=== PATIENT | female | born 1995 | race Caucasian/White ===

== ENCOUNTER → 2019-11-17 | Outpatient (CLI) | payer BC ==
[2019-11-17 10:08] LABS: Basophils % (A) 0 %; Eosinophils # (A) 0.1 k/uL (0-0.7); Eosinophils % (A) 1 %; HCT 38.3 % (34.0-46.0); HGB 12.5 gm/dL (11.4-16.0); Lymphocytes # (A) 2.2 k/uL (1.0-4.8); Lymphocytes % (A) 26 %; MCH 28.5 pg (25.0-35.0); MCHC 32.6 g/dL (31.0-37.0); MCV 87.2 fL (80.0-100.0); Mean Platelet Volume 7.3; Monocytes # (A) 0.4 k/uL (0-1.0); Monocytes % (A) 5 %; Neutrophils # (A) 5.4 k/uL (1.3-7.7); Neutrophils % (A) 65 %; Platelet Count 310 k/uL (150-450); RBC 4.39 m/uL (3.80-5.40); RDW 12.1 % (11.5-15.5); WBC 8.3 k/uL (3.8-10.6)
[2019-11-17 18:07] LABS: African American GFR (CKD) 138.6 (60.0-200.0); Albumin 4.6 g/dL (3.80-4.90); Albumin/Globulin Ratio 2.19 (1.60-3.17); Anion Gap 7.6 mmol/L (4.00-12.00); BUN/Creat Ratio 12.86 Ratio (12.00-20.00); Calcium 9.2 mg/dL (8.7-10.3); Carbon Dioxide 24.4 mmol/L (21.6-31.8); Globulin 2.1 g/dL (1.6-3.3); Non-African American GFR(CKD) 119.6 (60.0-200.0); Total Bilirubin 0.6 mg/dL (0.2-1.2); Total Protein 6.7 g/dL (6.2-8.2)
[2019-11-17 18:14] LABS: T4, Free (Free Thyroxine) 1.2 ng/dL (0.80-1.80)
== END | disposition home or self-care (01) ==
LOC: LABWHC1 09:46
PROVIDERS: ATTEND Nurse Practitioner Family
DX: Z33.1 Pregnant state, incidental (principal)
CPT/HCPCS: 36415; 80053; 84144; 84439; 84443; 84702; 85025; 86900; 86901

== ENCOUNTER → 2019-12-01 | Outpatient (CLI) | payer BC ==
--- NOTE | 2019-12-01 09:07 | US ---
EXAMINATION TYPE: Transabdominal DATE OF EXAM: 12/01/2019 8:19 AM COMPARISON: NONE CLINICAL HISTORY: Z33.1 state, incidental. Positive beta-hCG test. EXAM PERFORMED: Transvaginal (TV) and Transabdominal (TA) EXAM MEASUREMENTS: GESTATIONAL AGE / DATING Physician Established: Not yet established Dates by LMP: (7 weeks/6 days) EDC: 07/13/2020 Dates by First Scan: No previous this is first scan Dates by Current Scan for: (7 weeks/1 days) EDC: 07/18/2020 MATERNAL ANATOMY Uterus: 7.4 x 4.4 x 4.9 cm Right Ovary: 3.1 x 1.8 x 2.2 cm Left Ovary: 3.9 x 2.9 x 2.4 cm Post CDS / Adnexa: wnl Presence of free fluid: No Presence of corpus luteal cyst: Yes, left ovary measuring 2.3 x 1.4 x 1.7 cm Presence of subchorionic bleed: No GESTATION / SURVEY CRL: 1.0 cm (7 weeks/1 days) Yolk Sac (normal less than 6mm): 4 mm Heart Rate: 150 bpm Rhythm: Normal IUP: Viable IUP Date of LMP: 10/07/2019 Beta HcG (if available): Not available at this time Viable IUP with an SVETLANA of 07/18/2020 Single live intrauterine gestation is seen as gestational sac, yolk sac, and pole are present. No free fluid in pelvic cul-de-sac. Both ovaries are seen. Within the left ovary there is 2.3 cm thin-walled cyst could reflect corpus radha teal cyst. IMPRESSION: Single live intrauterine gestation is confirmed, mean crown-rump length is 1.0 cm corresp onding to a 7 week 1 day old fetus.
== END | disposition home or self-care (01) ==
LOC: RADUSWWP 07:38
PROVIDERS: ATTEND Family Medicine
DX: Z33.1 Pregnant state, incidental (principal); Z3A.01 Less than 8 weeks gestation of pregnancy
CPT/HCPCS: 76801; 76817

== ENCOUNTER 2020-07-10 06:06 | Inpatient (IN) | payer OTHER, BC ==
[2020-07-10] MEDS ORDERED: CARBOPROST TROMETHAMINE 250 MCG/ML 1 ML AMP IM PRN (06:20)
[2020-07-10] MEDS ORDERED: METHYLERGONOVINE 0.2 MG/ML 1 ML AMP IM PRN (06:20)
[2020-07-10] MEDS ORDERED: OXYTOCIN 10 UNIT/ML 1 ML VIAL IM PRN (06:20)
[2020-07-10] MEDS ORDERED: LIDOCAINE 0.5% (PF) 5 MG/ML (50 ML SDV) SQ PRN (06:20)
[2020-07-10] MEDS ORDERED: TERBUTALINE 1 MG/ML VIAL SQ PRN (06:20)
[2020-07-10] MEDS ORDERED: OXYTOCIN 30 UNITS/500 ML NS 30 UNIT in SALINE 1 500ML.BAG IV SCH (06:30)
[2020-07-10] MEDS: LACTATED RINGERS 1,000 ML IV SCH ×4 (06:43→20:45)
[2020-07-10] MEDS ORDERED: AMPICILLIN 2,000 MG in SODIUM CHLORIDE 0.9% 100 ML IVPB ONE (07:00)
[2020-07-10 07:07] LABS: Basophils % (A) 0 %; Eosinophils # (A) 0.1 k/uL (0-0.7); Eosinophils % (A) 1 %; HCT 35.7 % (34.0-46.0); HGB 11.7 gm/dL (11.4-16.0); Lymphocytes # (A) 2.9 k/uL (1.0-4.8); Lymphocytes % (A) 23 %; MCHC 32.8 g/dL (31.0-37.0); MCV 85.2 fL (80.0-100.0); Mean Platelet Volume 7.9; Monocytes # (A) 0.6 k/uL (0-1.0); Monocytes % (A) 5 %; Neutrophils # (A) 8.5 k/uL (1.3-7.7); Neutrophils % (A) 69 %; Platelet Count 309 k/uL (150-450); RBC 4.19 m/uL (3.80-5.40); RDW 13.8 % (11.5-15.5); WBC 12.4 k/uL (3.8-10.6)
[2020-07-10] MEDS: AMPICILLIN 1,000 MG in SODIUM CHLORIDE 0.9% 50 ML IVPB SCH ×2 (11:40→15:19)
[2020-07-10] MEDS ORDERED: SODIUM CHLORIDE 0.9% 100 ML BAG ONE (11:45)
[2020-07-10] MEDS ORDERED: fentaNYL (PF) 50 MCG/ML 5 ML AMP ONE (11:45)
[2020-07-10] MEDS ORDERED: ROPIVACAINE 5MG/ML 20ML VIAL ONE (11:45)
[2020-07-10] MEDS ORDERED: CITRIC ACID-SODIUM CITRATE 15 ML CUP PO ONE (16:13)
[2020-07-10] MEDS ORDERED: ceFAZolin 3 GM in SODIUM CHLORIDE 0.9% 100 ML IVPB ONE (16:13)
[2020-07-10] MEDS ORDERED: MORPHINE SULFATE (PF) 0.3 MG/0.3 ML SYR ONE (16:50)
[2020-07-10] MEDS ORDERED: LIDOCAINE 2% INJ 20 MG/ML (20 ML MDV) ONE (16:50)
[2020-07-10] MEDS ORDERED: PHENYLEPHRINE-0.9% NACL SYG 1 MG/10 ML SYRINGE ONE (16:50)
[2020-07-10] MEDS ORDERED: ONDANSETRON 4 MG/2 ML VIAL ONE (16:50)
[2020-07-10] MEDS ORDERED: OXYTOCIN 10 UNIT/ML 1 ML VIAL ONE (16:50)
[2020-07-10] MEDS ORDERED: MORPHINE SULFATE 2 MG/ML SYRINGE IVP PRN (17:20)
[2020-07-10] MEDS ORDERED: NALOXONE 0.4 MG/ML 1 ML VIAL IV PRN ×2 (17:20→17:45)
[2020-07-10] MEDS ORDERED: diphenhydrAMINE 50 MG/ML 1 ML VIAL IVP PRN ×3 (17:20→17:45)
[2020-07-10] MEDS ORDERED: ONDANSETRON 4 MG/2 ML VIAL IVP PRN ×2 (17:20→17:45)
--- NOTE | 2020-07-10 17:37 | P.HPOB ---
History of Present Illness H&P Date: 07/10/20 Chief Complaint: IUP @ 39 4/7 weeks, suspected LGA This is a 24-year-old 1 para 0 at 39 and 4/sevenths weeks that presents to labor and delivery for induction of labor. Patient has been receiving routine care since the first trimester. Patient is asked have a history of hypertension which has been well controlled, she has actually discontinued her labetalol with normal blood pressures in the third trimester. Patient has a history of asthma and depression in addition. Patient had been measuring large for gestational dates estimated weight 89 on 06/26. Patient was requesting induction of labor secondary to suspected LGA at that time. On bloodwork patient a blood type of O+, rubella status immune, RPR nonreactive, B surface antigen negative, HIV negative, a pre-[place] labs and 24 urine throughout the have been normal she did pass her one-hour Glucola: With a result of 128. Group beta strep culture was noted to be posi tive on 06/21. Review of Systems Constitutional: Denies fatigue, Denies fever Ears, nose, mouth and throat: Denies headache Cardiovascular: Reports leg edema Respiratory: Denies dyspnea Gastrointestinal: Reports vomiting, Denies constipation, Denies nausea Genitourinary: Reports Past Medical History Past Medical History: Asthma Additional Past Medical History / Comment(s): PCOS History of Any Multi-Drug Resistant Organisms: None Reported Past Surgical History: No Surgical Hx Reported Past Anesthesia/Blood Transfusion Reactions: No Reported Reaction Past Psychological History: Anxiety, Depression Smoking Status: Never smoker Past Alcohol Use History: None Reported Past Drug Use History: None Reported - Past Family History Mother Family Medical History: Hypertension Father Family Medical History: Hypertension Sister(s) Family Medical History: Thyroid Disorder Additional Family Medical History / Comment(s): Hypothyroid Medications and Allergies Home Medications Medication Instructions Recorded Confirmed Type Albuterol Inhaler [Ventolin Hfa 1 puff INHALATION DAILY PRN 07/10/20 07/10/20 History Inhaler] Sertraline [Zoloft] 50 mg PO DAILY 07/10/20 07/10/20 History metFORMIN HCL 500 mg PO DAILY 07/10/20 07/10/20 History Allergies Allergy/AdvReac Type Severity Reaction Status Date / Time No Known Allergies Allergy Verified 07/10/20 06:17 Exam Osteopathic Statement: *. No significant issues noted on an osteopathic structural exam other than those noted in the History and Physical/Consult. Vital Signs Temp Pulse Resp BP 07/10/20 06:45 97.5 F L 144 H 16 141/83 Intake and Output 07/09/20 07/10/20 07/10/20 22:59 06:59 14:59 Other: Weight 126.552 kg Targeted physical exam is performed and state in general this a well-nourished well-developed female in no acute distress, breathing is noted to be nonlabored, heart has regular rate and rhythm, abdomen is gravid and obese. heart tones returned be category 1, she is kulwinder every 4 minutes. On cervical exam she is 2/80/-2 station, amniotomy is performed and clear fluid was obtained. Results Result Diagrams: 07/10/20 06:40 Abnormal Lab Results - Last 24 Hours (Table) 07/10/20 Range/Units 06:40 WBC 12.4 H (3.8-10.6) k/uL Neutrophils # 8.5 H (1.3-7.7) k/uL Assessment and Plan (1) Term Current Visit: Yes Status: Acute Code(s): Z34.90 - ENCNTR FOR SUPRVSN OF NORMAL , UNSP, UNSP TRIMESTER SNOMED Code(s): 58638769 (2) Positive GBS test Current Visit: Yes Status: Acute Code(s): B95.1 - STREPTOCOCCUS, GROUP B, CAUSING DISEASES CLASSD ELSR SNOMED Code(s): 883291644 (3) Chronic hypertension Current Visit: Yes Status: Acute Code(s): I10 - ESSENTIAL (PRIMARY) HYPER TENSION SNOMED Code(s): 45561527 Plan: Patient is admitted to labor and delivery for induction of labor. Pitocin induction of labor is begun. Discussion with patient regarding options for pain control patient desires epidural once in labor. We'll monitor patient closely, all questions are answered patient states understanding of plan.
[2020-07-10] MEDS ORDERED: diphenhydrAMINE 50 MG CAP PO PRN (17:45)
[2020-07-10] MEDS ORDERED: SIMETHICONE 80 MG CHEWABLE PO PRN (17:45)
[2020-07-10] MEDS ORDERED: OXYTOCIN 20 UNITS/1000 ML NS 1,000 ML IV SCH (17:45)
[2020-07-10] MEDS ORDERED: diphenhydrAMINE 25 MG CAP PO PRN (17:45)
[2020-07-10] MEDS ORDERED: ZOLPIDEM 5 MG TAB PO PRN (17:45)
[2020-07-10] MEDS ORDERED: HYDROcodone/APAP 5-325MG 1 EACH TAB PO PRN (17:45)
--- NOTE | 2020-07-10 17:45 | P.OP ---
Date of Procedure: 07/10/20 Preoperative Diagnosis: IUP @ 39 4/7 weeks, non reassuring FHTs, suspected LGA Postoperative Diagnosis: same Procedure(s) Performed: Primary LTCS Anesthesia: epidural Surgeon: Laura Jones Rubber Washer #1: Betsy Gonzales Estimated Blood Loss (ml): 600 IV fluids (ml): 1,000 Urine output (ml): 100 Pathology: other (placenta) Condition: stable Disposition: observation Indications for Procedure: This is a 24yo at 39 4/7 weeks that presented for IOL, she had an US done approx., 2 weeks ago revealing EFW > 90%ile. she was admitted and pitocin induction of labor was begun. she soon requested epidural and this was placed by the anesthesia department. Patient was noted to be comfortable with epidural, she began having late decels and pitocin was turned off. FHTs were then noted to be reactive, discussion with patient regarding heart tones and the need for contractions. she elects primary c section. Operative Findings: Normal uterus tubes and ovaries were appreciated, viable female infant delivered at 1708, weight of 8 lbs. 9 oz. and Apgars of 7 and 9 at one and 5 minutes respectfully. Description of Procedure: Patient was taken back to the operating suite where epidural anesthesia was found be adequate by the anesthesia . She was then prepped and draped in normal sterile fashion a Watson catheter had been placed prior to the beginning of the procedure. A Pfannenstiel skin incision was made with the scalpel and carried through the underlying layer of fascia. The fascia was then incised in the midline and the incision was extended laterally. The superior aspect of the fascial incision was then grasped anatoliy clamps, elevated and the underlying rectus muscle was dissected off sharply. Attention was then turned the inferior aspect of the fascial incision which was grasped [place] clamps, elevated and underlying rectus muscle was dissected off sharply once again. The rectus muscles were in the midline the peritoneum was identified and entered. This incision was then extended superiorly and inferiorly with good visualization the bladder. The bladder blade was then inserted into the pelvis. A bladder flap was then created using sharp and blunt blunt dissection. The bladder blade was then reinserted. Hysterotomy incision was then made with the scalpel, amniotomy was performed and clear fluid was obtained. The was then noted to be in the occiput transverse presentation and delivered in the usual fashion. The umbilical cord was doubly clamped and cut and handed off to awaiting RN. Cord blood was then taken, the placenta was then delivered manually intact with a three-vessel cord being noted. The uterus was then delivered from the abdomen. The uterus was cleared of all clots and debris. The uterine incision was closed 0 Vicryl in a running locked fashion from one lateral edge the other. A second layer of suture was then used as an imbricating layer. The pelvis was then irrigated copiously. The uterus was then returned to the abdomen. Hysterotomy incision was noted to be hemostatic. The gutters were cleared of all clots and debris. The peritoneum was then loosely approximated. The fascial incision was then closed with 0 Vicryl in a running fashion from one lateral edge the midline and the other lateral edge the midline. The subcutaneous tissue was then irrigated and hemostasis was appreciated. The subcutaneous tissue was closed with 3-0 Vicryl in a running fashion. The skin was then closed with 4-0 Vicryl in a subcuticular fashion. Steri-Strips and sterile dressings are applied. Patient and tolerated delivery well. All counts were noted be correct 2.
[2020-07-10] MEDS ORDERED: ACETAMINOPHEN IV (For NPO) 1,000 MG in EMPTY BAG 1 BAG IVPB ONE (18:30)
[2020-07-10] MEDS ORDERED: IBUPROFEN IV 800 MG in SODIUM CHLORIDE 0.9% 250 ML IV ONE (19:00)
[2020-07-10] MEDS: SERTRALINE 50 MG TAB PO SCH (20:44)
[2020-07-10] MEDS: SENNOSIDES-DOCUSATE SODIUM 1 EACH TAB PO SCH (20:46)
[2020-07-11] MEDS: LACTATED RINGERS 1,000 ML IV SCH ×3 (03:55→21:11)
[2020-07-11 06:38] LABS: Basophils % (A) 0 %; Eosinophils # (A) 0.1 k/uL (0-0.7); Eosinophils % (A) 0 %; HCT 31.4 % (34.0-46.0); HGB 10.3 gm/dL (11.4-16.0); Lymphocytes # (A) 2.7 k/uL (1.0-4.8); Lymphocytes % (A) 16 %; MCH 28.4 pg (25.0-35.0); MCHC 32.9 g/dL (31.0-37.0); MCV 86.3 fL (80.0-100.0); Mean Platelet Volume 7.7; Monocytes # (A) 1.1 k/uL (0-1.0); Monocytes % (A) 6 %; Neutrophils # (A) 13.2 k/uL (1.3-7.7); Neutrophils % (A) 77 %; Platelet Count 263 k/uL (150-450); RBC 3.64 m/uL (3.80-5.40); RDW 13.6 % (11.5-15.5); WBC 17.3 k/uL (3.8-10.6)
--- NOTE | 2020-07-11 07:17 | P.PN ---
Progress Note - Text Date: 07/11/2020 Time: 0700 The patient is status post section Vital signs stable VAS: 0-10 Patient has no complaints of pain. The patient incurred some minimal itching yesterday, this itching is now subsiding. Pain meds to be managed by service.
[2020-07-11] MEDS: SERTRALINE 50 MG TAB PO SCH ×2 (08:14→08:50)
[2020-07-11] MEDS: SENNOSIDES-DOCUSATE SODIUM 1 EACH TAB PO SCH ×2 (08:14→21:11)
[2020-07-11] MEDS: IBUPROFEN 600 MG TAB PO PRN ×3 (08:15→23:32)
--- NOTE | 2020-07-11 08:26 | P.PNOBGPC ---
Subjective - Subjective Principal diagnosis: Postop day 1 status post primary Interval history: Patient did well overnight. She is ambulating and voiding without difficulty. She states her pain is well-controlled. She is breast-feeding without difficulty. Her lochia is minimal. She is tolerating clear liquids without nausea or vomiting. Patient reports: Reports appetite normal, Reports voiding normally, Reports pain well controlled, Reports ambulating normally [place]: doing well, nursing well Objective - Vital Signs Latest vital signs: Vital Signs Temp Pulse Resp BP Pulse Ox 07/11/20 06:00 16 07/11/20 04:00 98.1 F 92 16 105/65 99 07/11/20 02:00 16 98 07/11/20 00:00 98.1 F 90 16 121/71 98 07/10/20 22:00 16 100 07/10/20 20:20 17 07/10/20 19:36 98.7 F 92 19 110/61 97 07/10/20 19:06 99 17 105/55 97 07/10/20 18:36 102 H 16 127/63 99 07/10/20 18:21 104 H 16 125/63 94 L 07/10/20 18:06 16 127/82 95 07/10/20 17:51 100 16 124/68 97 07/10/20 17:36 97.9 F 106 H 16 138/66 99 Intake and Output 07/10/20 07/11/20 07/11/20 22:59 06:59 14:59 Output Total 600 1200 Balance -600 -1200 Output: Urine 600 1200 Uretheral (Watson) 300 - Exam Extremities: Present: normal, edema Abdomen: Present: normal appearance, soft Incision: Present: normal, dry, intact - Labs Labs: Abnormal Lab Results - Last 24 Hours (Table) 07/11/20 Range/Units 05:58 WBC 17.3 H (3.8-10.6) k/uL RBC 3.64 L (3.80-5.40) m/uL Hgb 10.3 L (11.4-16.0) gm/dL Hct 31.4 L (34.0-46.0) % Neutrophils # 13.2 H (1.3-7.7) k/uL Monocytes # 1.1 H (0-1.0) k/uL Assessment and Plan (1) Term Current Visit: Yes Status: Acute Code(s): Z34.90 - ENCNTR FOR SUPRVSN OF NORMAL , UNSP, UNSP TRIMESTER SNOMED Code(s): 88636308 (2) Positive GBS test Current Visit: Yes Status: Acute Code(s): B95.1 - STREPTOCOCCUS, GROUP B, CAUSING DISEASES CLASSD ELSWHR SNOMED Code(s): 918619024 (3) Chronic hypertension Current Visit: Yes Status: Acute Code(s): I10 - ESSENTIAL (PRIMARY) HYPERTENSION SNOMED Code(s): 91013640 (4) S/P section Narrative/Plan: For nonreassuring reassuring status, heart tones are noted to have late decelerations with Pitocin augmentation of labor. Pitocin was turned off heart tones returned to reassuring status. Current Visit: Yes Status: Acute Code(s): Z98.891 - HISTORY OF UTERINE SCAR FROM PREVIOUS SURGERY SNOMED Code(s): 326868938 Plan: This 24-year-old 1 now para 1 status post primary for nonreassuring heart tones is doing well. Patient is encouraged to increase ambulation today. We will plan to continue routine postoperative care and anticipate discharge home tomorrow.
[2020-07-11] MEDS: ACETAMINOPHEN TAB 325 MG TAB PO PRN (18:36)
[2020-07-12] MEDS: ACETAMINOPHEN TAB 325 MG TAB PO PRN (03:02)
[2020-07-12] MEDS: IBUPROFEN 600 MG TAB PO PRN (05:39)
[2020-07-12 08:46] VITALS: BP 135/72; PULSE 103; RESP 16; TEMP 98.3
[2020-07-12] MEDS: SENNOSIDES-DOCUSATE SODIUM 1 EACH TAB PO SCH (08:49)
--- NOTE | 2020-07-12 09:04 | P.DS ---
Providers Date of admission: 07/10/20 06:06 Expected date of discharge: 07/12/20 Attending physician: Laura Jones Primary care physician: Quan Saini - Discharge Diagnosis(es) (1) Term Current Visit: Yes Status: Acute (2) Positive GBS test Current Visit: Yes Status: Acute (3) Chronic hypertension Current Visit: Yes Status: Acute (4) S/P section Current Visit: Yes Status: Acute Hospital Course: This is a 24-year-old 1 now para 1 presented to labor and delivery at 39-4/7 weeks for induction of labor. Patient had been receiving routine care and suspected LGA was noted. Patient desired induction of labor. Patient has a history of chronic hypertension which was controlled with labetalol, she subsequently took herself off her medication approximate 1 month prior to delivery. Patient was admitted to labor and delivery and Pitocin induction of labor was begun. Patient subsequently underwent amniotomy and clear fluid was obtained. Patient's and became uncomfortable and requested epidural placement. Epidural was placed without difficulty by the anesthesia department. Patient progressed through labor and nonreassuring heart tones were noted patient was having late decelerations with contractions. Pitocin was turned off heart tones returned category 1. Given the repetitive nature of the lates with Pitocin discussion was had with the patient regarding primary secondary to nonreassuring heart tones with Pitocin. Patient agreed and wished to proceed. Patient was taken for primary which was completed without difficulty.. For further decelerations on the please see the operative report. Patient delivered a viable female at 1708, weight of 8 lbs. 9 oz. with Apgars of 7 and 9 at one and 5 minutes respectively. Patient's course has been uneventful. On this day #2 she is ambulating and voiding without difficulty. She states her pain is well-controlled. She denies concerns and does wish discharge home. Patient Condition at Discharge: Good Plan - Discharge Summary New Discharge Prescriptions: No Action Sertraline [Zoloft] 50 mg PO DAILY metFORMIN HCL 500 mg PO DAILY Albuterol Inhaler [Ventolin Hfa Inhaler] 1 puff INHALATION DAILY PRN PRN Reason: Dyspnea Discharge Medication List Albuterol Inhaler [Ventolin Hfa Inhaler] 1 puff INHALATION DAILY PRN 07/10/20 [History] Sertraline [Zoloft] 50 mg PO DAILY 07/10/20 [History] metFORMIN HCL 500 mg PO DAILY 07/10/20 [History] Follow up Appointment(s)/Referral(s): Laura Jones DO [Doctor of Osteopathic Medicine] - 2 Weeks Patient Instructions/Handouts: (DC), (GEN) Discharge Disposition: HOME SELF-CARE
[2020-07-12] MEDS: SERTRALINE 50 MG TAB PO SCH (11:38)
== END 2020-07-12 11:42 | disposition home or self-care (01) | DRG 788 ==
LOC: 4FBP 06:06
PROVIDERS: ADMIT Obstetrics & Gynecology Obstetrics; ATTEND Obstetrics & Gynecology Obstetrics
PROC: 3E033VJ Introduction of Other Hormone into Peripheral Vein, Percutaneous Approach (ICD-10-PCS; principal; 2020-07-10 16:30)
PROC: 10D00Z1 Extraction of Products of Conception, Low, Open Approach (ICD-10-PCS; principal; 2020-07-10 16:30)
DX: O16.4 Unspecified maternal hypertension, complicating childbirth (principal); O76 Abnormality in fetal heart rate and rhythm complicating labor and delivery; O99.344 Other mental disorders complicating childbirth; F32.9 Major depressive disorder, single episode, unspecified; F41.9 Anxiety disorder, unspecified; O99.824 Streptococcus B carrier state complicating childbirth; O99.284 Endocrine, nutritional and metabolic diseases complicating childbirth; E28.2 Polycystic ovarian syndrome; Z37.0 Single live birth; Z3A.39 39 weeks gestation of pregnancy; Z79.84 Long term (current) use of oral hypoglycemic drugs; Z79.899 Other long term (current) drug therapy; Z87.09 Personal history of other diseases of the respiratory system; Z82.49 Family history of ischemic heart disease and other diseases of the circulatory system; Z83.49 Family history of other endocrine, nutritional and metabolic diseases
CPT/HCPCS: 85025; 86850; 86900; 86901

== ENCOUNTER 2022-07-20 19:24 | Inpatient (IN) | payer BC, MEDICAID, OTHER ==
--- NOTE | 2022-07-20 22:47 | XR ---
EXAMINATION TYPE: XR KUB DATE OF EXAM: 07/20/2022 COMPARISON: NONE HISTORY: Vomiting TECHNIQUE: 2 views upright FINDINGS: There is no sign of intestinal obstruction or pneumoperitoneum. Fecal pattern is normal. No evidence of a mass. There are no pathologic calcifications over the kidneys. IMPRESSION: Nonacute abdomen.
[2022-07-20 23:49] LABS: Amorphous Sediment,Urine Occasional /hpf; Appearance,Urine Turbid (Clear); Bacteria,Urine Few /hpf; Bilirubin,Urine 2+ (Negative); Blood,Urine Negative (Negative); Color,Urine Light Brown; Glucose,Urine (UA) Negative (Negative); Ketones,Urine 2+ (Negative); Leukocyte Esterase,Urine Negative (Negative); Nitrite,Urine Negative (Negative); PH, Urine 5.5 (5.0-8.0); Protein,Urine Trace (Negative); RBC,Urine 3 /hpf (0-5); Specific Gravity,Urine 1.023 (1.001-1.035); Squamous Epithelial Cell,Urine 3 /hpf (0-4); WBC,Urine 2 /hpf (0-5)
--- NOTE | 2022-07-21 00:52 | ED ---
Abdominal Pain HPI - General Chief Complaint: Abdominal Pain Stated Complaint: Gallbladder pain, Urgent care sent Time Seen by Provider: 07/21/22 00:48 Source: patient, family, RN notes reviewed Mode of arrival: ambulatory Limitations: no limitations - History of Present Illness Initial Comments: This is a pleasant 26-year-old female who presents emergency department with recurrent right upper quadrant and upper abdominal pain. Patient states that th e pain is sharp, seems to be exacerbated by eating or palpation. She did have some radiation to the back area which she states is actually going on for several months. No chest pain or shortness of breath. No fever. Some vomiting without hematemesis or coffee-ground emesis. She states that the urgent care were is worried that she might be jaundiced. Denies chance of . Patient was also seen at urgent care this morning and was sent here for evaluation. No headache, no fever or chills, no changes in vision or hearing, no sore throat or difficulty with speech, no neck pain, no chest pain or shortness of breath, no changes in urination or bowel movements, no numbness or tingling, no extremity pain, no skin rashes or lesions. Past medical, surgical, social, and family history reviewed. - Related Data Home Medications Medication Instructions Recorded Confirmed Albuterol Inhaler [Ventolin Hfa 1 puff INHALATION DAILY PRN 07/10/20 07/10/20 Inhaler] Sertraline [Zoloft] 50 mg PO DAILY 07/10/20 07/10/20 metFORMIN HCL 500 mg PO DAILY 07/10/20 07/10/20 Allergies Allergy/AdvReac Type Severity Reaction Status Date / Time No Known Allergies Allergy Verified 07/20/22 20:41 Review of Systems ROS Statement: Those systems with pertinent positive or pertinent negative responses have been documented in the HPI. ROS Other: All systems not noted in ROS Statement are negative. Past Medical History Past Medical History: Asthma Additional Past Medical History / Comment(s): PCOS History of Any Multi-Drug Resistant Organisms: None Reported Past Surgical History: No Surgical Hx Reported Past Anesthesia/Blood Transfusion Reactions: No Reported Reaction Past Psychological History: Anxiety, Depression Smoking Status: Never smoker Past Alcohol Use History: Occasional Past Drug Use History: None Reported - Past Family History Mother Family Medical History: Hypertension Father Family Medical History: Hypertension Sister(s) Family Medical History: Thyroid Disorder Additional Family Medical History / Comment(s): Hypothyroid General Exam - General Exam Comments Initial Comments: Patient in no distress at the time I'm seeing her. Patient actually drinking a soda when I enter the room. Limitations: no limitations General appearance: alert, obese Head exam: Present: atraumatic, normocephalic, normal inspection Eye exam: Present: normal appearance, PERRL, EOMI, scleral icterus (Mild). Absent: conjunctival injection, periorbital swelling ENT exam: Present: normal exam, mucous membranes moist Neck exam: Present: normal inspection, full ROM. Absent: tenderness, meningismus, lymphadenopathy Respiratory exam: Present: normal lung sounds bilaterally. Absent: respiratory distress, wheezes, rales, rhonchi, stridor, chest wall tenderness, accessory muscle use Cardiovascular Exam: Present: regular rate, normal rhythm, normal heart sounds. Absent: systolic murmur, diastolic murmur, rubs, gallop, clicks GI/Abdominal exam: Present: soft, tenderness (Right upper quadrant), normal bowel sounds. Absent: distended, guarding, rebound, rigid Extremities exam: Present: normal inspection, full ROM, normal capillary refill. Absent: tenderness, pedal edema, joint swelling, calf tenderness Back exam: Present: normal inspection Neurological exam: Present: alert, oriented X3, CN II-XII intact Psychiatric exam: Present: normal affect, normal mood Skin exam: Present: warm, dry, intact, normal color. Absent: rash Course Vital Signs 07/20/22 20:36 Temperature 98.5 F Pulse Rate 114 H Respiratory 22 Rate Blood Pressure 120/88 O2 Sat by Pulse 100 Oximetry - Reevaluation(s) Reevaluation #1: 07/21/22 02:46 Patient reevaluated, has very mild right upper quadrant pain and tenderness. However patient's hepatic enzymes reveal an ALT of 688, alkaline phosphatase of 191, AST of 288, total bilirubin 4.8. Neutrophil count is 8300. White blood cell count 10,400. Patient's gallbladder ultrasounds essentially nondiagnostic and did not show any definitive acute changes. I'm going to add on a computed tomography scan given the laboratory findings. She'll need to be admitted with gastroenterology consultation. Reevaluation #2: 07/21/22 02:46 Zosyn 3.375 g IV piggyback ordered Medical Decision Making - Medical Decision Making Patient symptomology most consistent with biliary colic or gallbladder disease. Patient looks well. Does not appear to be ill or toxic. I suspect this is not infectious etiology. However cholecystitis and ascending cholangitis still in the differential. No consistent cardiopulmonary disease. There is no lower abdominal pain. Unlikely to be other intra-abdominal infectious etiology or inflammatory etiology. Pancreatitis possible but less likely. Patient will be admitted for further evaluation for obstructive jaundice, elevated bilirubin, elevated hepatic enzymes, gallbladder ultrasound was essentially nondiagnostic aside from gallbladder polyps. Computed tomography scan is ordered. Call placed to the patient's admitting physician. The case was discussed in detail with ED attending physician. Presentation, findings, treatment plan discussed in detail. Layout Designer Dr. Langford - Lab Data Result diagrams: 07/21/22 02:12 07/21/22 02:12 Lab Results 07/20/22 07/20/22 07/21/22 Range/Units 23:31 23:31 02:12 WBC 10.4 (3.8-10.6) k/uL RBC 4.65 (3.80-5.40) m/uL Hgb 13.7 (11.4-16.0) gm/dL Hct 41.5 (34.0-46.0) % MCV 89.2 (80.0-100.0) fL MCH 29.5 (25.0-35.0) pg MCHC 33.1 (31.0-37.0) g/dL RDW 12.8 (11.5-15.5) % Plt Count 341 (150-450) k/uL MPV 7.0 Neutrophils % 79 % Lymphocytes % 14 % Monocytes % 4 % Eosinophils % 1 % Basophils % 0 % Neutrophils # 8.3 H (1.3-7.7) k/uL Lymphocytes # 1.5 (1.0-4.8) k/uL Monocytes # 0.4 (0-1.0) k/uL Eosinophils # 0.1 (0-0.7) k/uL Basophils # 0.0 (0-0.2) k/uL Sodium (137-145) mmol/L Potassium (3.5-5.1) mmol/L Chloride (98-107) mmol/L Carbon Dioxide (22-30) mmol/L Anion Gap mmol/L BUN (7-17) mg/dL Creatinine (0.52-1.04) mg/dL Est GFR (CKD-EPI)AfAm (>60 ml/min/1.73 sqM) Est GFR (CKD-EPI)NonAf (>60 ml/min/1.73 sqM) Glucose (74-99) mg/dL Calcium (8.4-10.2) mg/dL Total Bilirubin (0.2-1.3) mg/dL AST (14-36) U/L ALT (4-34) U/L Alkaline Phosphatase (38-126) U/L Total Protein (6.3-8.2) g/dL Albumin (3.5-5.0) g/dL Amylase (30-110) U/L Lipase (23-300) U/L Urine Color Light Brown Urine Appearance Turbid H (Clear) Urine pH 5.5 (5.0-8.0) Ur Specific [place] 1.023 (1.001-1.035) Urine Protein Trace H (Negative) Urine Glucose (UA) Negative (Negative) Urine Ketones 2+ H (Negative) Urine Blood Negative (Negative) Urine Nitrite Negative (Negative) Urine Bilirubin 2+ H (Negative) Urine Urobilinogen 2.0 (<2.0) mg/dL Ur Leukocyte Esterase Negative (Negative) Urine RBC 3 (0-5) /hpf Urine WBC 2 (0-5) /hpf Ur Squamous Epith Cells 3 (0-4) /hpf Amorphous Sediment Occasional H (None) /hpf Urine Bacteria Few H (None) /hpf Urine HCG, Qual Not Detected (Not Detectd) 07/21/22 Range/Units 02:12 WBC (3.8-10.6) k/uL RBC (3.80-5.40) m/uL Hgb (11.4-16.0) gm/dL Hct (34.0-46.0) % MCV (80.0-100.0) fL MCH (25.0-35.0) pg MCHC (31.0-37.0) g/dL RDW (11.5-15.5) % Plt Count (150-450) k/uL MPV Neutrophils % % Lymphocytes % % Monocytes % % Eosinophils % % Basophils % % Neutrophils # (1.3-7.7) k/uL Lymphocytes # (1.0-4.8) k/uL Monocytes # (0-1.0) k/uL Eosinophils # (0-0.7) k/uL Basophils # (0-0.2) k/uL Sodium 138 (137-145) mmol/L Potassium 4.2 (3.5-5.1) mmol/L Chloride 102 (98-107) mmol/L Carbon Dioxide 22 (22-30) mmol/L Anion Gap 14 mmol/L BUN 7 (7-17) mg/dL Creatinine 0.79 (0.52-1.04) mg/dL Est GFR (CKD-EPI)AfAm >90 (>60 ml/min/1.73 sqM) Est GFR (CKD-EPI)NonAf >90 (>60 ml/min/1.73 sqM) Glucose 128 H (74-99) mg/dL Calcium 9.3 (8.4-10.2) mg/dL Total Bilirubin 4.8 H (0.2-1.3) mg/dL AST 288 H (14-36) U/L ALT 688 H (4-34) U/L Alkaline Phosphatase 191 H (38-126) U/L Total Protein 7.5 (6.3-8.2) g/dL Albumin 4.7 (3.5-5.0) g/dL Amylase 39 (30-110) U/L Lipase 65 (23-300) U/L Urine Color Urine Appearance (Clear) Urine pH (5.0-8.0) Ur Specific [place] (1.001-1.035) Urine Protein (Negative) Urine Glucose (UA) (Negative) Urine Ketones (Negative) Urine Blood (Negative) Urine Nitrite (Negative) Urine Bilirubin (Negative) Urine Urobilinogen (<2.0) mg/dL Ur Leukocyte Esterase (Negative) Urine RBC (0-5) /hpf Urine WBC (0-5) /hpf Ur Squamous Epith Cells (0-4) /hpf Amorphous Sediment (None) /hpf Urine Bacteria (None) /hpf Urine HCG, Qual (Not Detectd) Disposition Clinical Impression: Biliary colic, Obstructive jaundice, Right upper quadrant abdominal pain, Gallbladder polyp, Acute hepatitis Disposition: ADMITTED IP TO THIS HOSP Condition: Stable Is patient prescribed a controlled substance at d/c from ED?: No Referrals: Quan Saini DO [Primary Care Provider] - 1-2 days Time of Disposition: 02:48 Decision to Admit Reason: Admit from EC Decision Time: 02:48
--- NOTE | 2022-07-21 01:32 | US ---
EXAMINATION TYPE: US gallbladder DATE OF EXAM: 07/21/2022 COMPARISON: NONE CLINICAL HISTORY: Right upper quadrant pain. RUQ pain with n/v x 2 days. TECHNIQUE: Multiple sonographic images of the right upper quadrant are obtained. FINDINGS: EXAM MEASUREMENTS: Liver Length: 16.6 cm Gallbladder Wall: 0.16 cm CBD: 0.58 cm Right Kidney: 10.6 x 5.0 x 4.6 cm [employer]PORATE SALES MANAGER NOTES: Pancreas: wnl Liver: Increased attenuation, heterogeneous Gallbladder: Multiple polyps seen Evidence for sonographic Hastings's sign: No CBD: Upper limits of normal Right Kidney: wnl IMPRESSION: No focal liver defect. No renal obstruction. Multiple nonshadowing foci in the gallbladder consistent with gallbladder polyps. No dilated ducts.
[2022-07-21] MEDS ORDERED: ONDANSETRON 4 MG/2 ML VIAL IVP STA (01:38)
[2022-07-21] MEDS ORDERED: SODIUM CHLORIDE 0.9% 1,000 ML IV ONE (01:38)
[2022-07-21 02:26] LABS: Basophils % (A) 0 %; Eosinophils # (A) 0.1 k/uL (0-0.7); Eosinophils % (A) 1 %; HCT 41.5 % (34.0-46.0); HGB 13.7 gm/dL (11.4-16.0); Lymphocytes # (A) 1.5 k/uL (1.0-4.8); Lymphocytes % (A) 14 %; MCH 29.5 pg (25.0-35.0); MCHC 33.1 g/dL (31.0-37.0); MCV 89.2 fL (80.0-100.0); Monocytes # (A) 0.4 k/uL (0-1.0); Monocytes % (A) 4 %; Neutrophils # (A) 8.3 k/uL (1.3-7.7); Neutrophils % (A) 79 %; Platelet Count 341 k/uL (150-450); RBC 4.65 m/uL (3.80-5.40); RDW 12.8 % (11.5-15.5); WBC 10.4 k/uL (3.8-10.6)
[2022-07-21 02:37] LABS: ALT 688 U/L (4-34); AST 288 U/L (14-36); African American GFR (CKD) >90 (>60 ml/min/1.73 sqM); Albumin 4.7 g/dL (3.5-5.0); Alkaline Phosphatase 191 U/L (38-126); Amylase 39 U/L (30-110); Anion Gap 14 mmol/L; Blood Urea Nitrogen 7 mg/dL (7-17); Calcium 9.3 mg/dL (8.4-10.2); Carbon Dioxide 22 mmol/L (22-30); Chloride 102 mmol/L (98-107); Glucose 128 mg/dL (74-99); Lipase 65 U/L (23-300); Non-African American GFR(CKD) >90 (>60 ml/min/1.73 sqM); Potassium 4.2 mmol/L (3.5-5.1); Sodium 138 mmol/L (137-145); Total Bilirubin 4.8 mg/dL (0.2-1.3); Total Protein 7.5 g/dL (6.3-8.2)
[2022-07-21] MEDS ORDERED: PIPERACILLIN-TAZOBACTAM 3.375 GM in SODIUM CHLORIDE 0.9% 100 ML IVPB STA (02:44)
[2022-07-21] MEDS ORDERED: ONDANSETRON 4 MG/2 ML VIAL IVP PRN (02:57)
[2022-07-21] MEDS ORDERED: NALOXONE 0.4 MG/ML 1 ML VIAL IV PRN (02:57)
--- NOTE | 2022-07-21 03:17 | CT ---
EXAMINATION TYPE: CT abdomen pelvis w con DATE OF EXAM: 07/21/2022 COMPARISON: None HISTORY: RUQ PAIN CT DLP: 2219.3 mGycm Automated exposure control for dose reduction was used. CONTRAST: Performed with IV Contrast, patient injected with 100 mL of Isovue 300. Images obtained from the diaphragm to the floor the pelvis with the IV contrast. Lung bases are clear. No pleural effusion heart size is normal. No pericardial effusion Liver spleen pancreas appear intact. There is 1 cm calcified gallstone. The bile ducts are nondilated . There is small cholesterol gallstone. The stomach is intact. There is no adrenal mass. Kidneys have normal size and contour. No hydronephrosis. Ureters are not di lated. No retroperitoneal adenopathy. Appendix is posterior and appears normal. The bladder distends smoothly. No inguinal hernia. No free fluid in the pelvis. The lumbar vertebrae have normal alignment. No compression fracture. Posterior elements are intact. B jackie pelvis is intact. The hip joints are intact. There is no mesenteric edema. No ascites or free air. No sign of a bowel obstruction. Uterus is antev erted. No evidence of pelvic mass. IMPRESSION: There is cholelithiasis. Otherwise negative CT scan of the abdomen and pelvis.
[2022-07-21] MEDS: KETOROLAC 15 MG/ML 1 ML VIAL IVP PRN ×2 (03:37→19:53)
[2022-07-21] MEDS: MORPHINE SULFATE 4 MG/ML SYRINGE IV PRN ×2 (03:38→19:54)
[2022-07-21] MEDS: SODIUM CHLORIDE 0.9% 1,000 ML IV SCH ×3 (07:40→14:12)
[2022-07-21] MEDS: HEPARIN SODIUM,PORCINE/PF 5,000 UNIT/0.5 ML SYRINGE SQ SCH ×3 (07:44→23:51)
[2022-07-21 09:16] LABS: Hepatitis A Antibody IgM Nonreactive (Nonreactive); Hepatitis B Core IgM Nonreactive (Nonreactive); Hepatitis B Surface Antigen Nonreactive (Nonreactive); Hepatitis C IgG Antibody Nonreactive (Nonreactive)
[2022-07-21] MEDS ORDERED: ALPRAZolam 0.5 MG TAB PO STA (10:18)
[2022-07-21] MEDS ORDERED: LORazepam 2 MG/ML INJ IV STA (12:06)
--- NOTE | 2022-07-21 12:21 | P.HPIM ---
History of Present Illness H&P Date: 07/21/22 This is a 26 year old female with medical history of asthma, polycystic ovarian syndrome, anxiety/depression. She presents to the emergency room with complaints of right upper quadrant pain and also generalized diffuse abdominal pain sharp in nature. Pain is exacerbated by eating and also palpation. Pain states she had drank alcohol Wednesday night, the pain began Wednesday morning was crampy and sharp . She had vomited a few times Wednesday. She went to urgent care wednesday for complaints of abdominal pain and dehydration, she does report her urine seemed dark. They did a urinalysis and told her to follow up with her PCP. The pain seemed to improved, she ate [employer] Wednesday evening. She also reports having liquid stool on wednesday. The pain then worsened and she reported to a different urgent care who sent the patient to the hospital for further evaluation. She denies fever or chills. No chest pain, no shortness of breath. No hematuria, hemetemsis or bloody stool. No previous issues with gallbladder. KUB xray showing non acute abdomen. Gallbladder ultrasound showing multiple nonshadowing foci in the gallbladder consistent with polyps, no dilated ducts. Abdominal pelvis CT showing cholelisthiasis. Patient does not have a white count, however total bilirubin is elevated at 4.8, AST 288, ALT 688, alk phos 191. Hepatitis panel is negative. Urine is showing 2+ bili. Patient is placed NPO and receiving IV hydration with normal saline. She received a dose of zosyn in the EC. GI services has been placed for consultation. REVIEW OF SYSTEMS: CONSTITUTIONAL: No fever, no malaise, no fatigue. HEENT: No recent visual problems or hearing problems. Denied any sore throat. CARDIOVASCULAR: No chest pain, orthopnea, PND, no palpitations, no syncope. PULMONARY: No shortness of breath, no cough, no hemoptysis. GASTROINTESTINAL: Reports diarrhea, nausea, reports crampy abdominal pain NEUROLOGICAL: No headaches, no weakness, no numbness. HEMATOLOGICAL: Denies any bleeding or petechiae. GENITOURINARY: Denies any burning micturition, frequency, or urgency. MUSCULOSKELETAL/RHEUMATOLOGICAL: Denies any joint pain, swelling, or any muscle pain. ENDOCRINE: Denies any polyuria or polydipsia. The rest of the 14-point review of systems is negative. PHYSICAL EXAMINATION: GENERAL: The patient is alert and oriented x3, not in any acute distress. Well developed, well nourished. HEENT: Pupils are round and equally reacting to light. EOMI. No scleral icterus. No conjunctival pallor. Normocephalic, atraumatic. No pharyngeal erythema. No thyromegaly. CARDIOVASCULAR: S1 and S2 present. No murmurs, rubs, or gallops. PULMONARY: Chest is clear to auscultation, no wheezing or crackles. ABDOMEN: Soft, nontender, nondistended, normoactive bowel sounds. No palpable organomegaly. MUSCULOSKELETAL: No joint swelling or deformity. EXTREMITIES: No cyanosis, clubbing, or pedal edema. NEUROLOGICAL: Gross neurological examination did not reveal any focal deficits. SKIN: No rashes. Assessment and Plan Assessment Acute abdominal pain possibly from cholelisthiasis Elevated transaminases secondary to above History hypertension takes lisinopril which is held at this time patient is normotensive History of asthma no acute exacerbation History PCOS Anxiety/Depression GI Prophylaxis DVT Prophylaxis Full Code Plan Continue NPO diet IV fluids, antiemetics General surgery has been consulted for further evaluation GI consultation Repeat CMP in AM Continue all other supportive care The impression and plan of care has been dictated by Melida Mathews Nurse Practitioner as directed. Dr. Moi MD I have performed a history and physical examination and medical decision making of this patient, discussed the same with the dictator, and agree with the dictators assessment and plan as written, documented as a scribe. Based on total visit time, I have performed more than 50% of this visit. Past Medical History Past Medical History: Asthma Additional Past Medical History / Comment(s): PCOS History of Any Multi-Drug Resistant Organisms: None Reported Past Surgical History: No Surgical Hx Reported Past Anesthesia/Blood Transfusion Reactions: No Reported Reaction Past Psychological History: Anxiety, Depression Smoking Status: Never smoker Past Alcohol Use History: Occasional Past Drug Use History: None Reported - Past Family History Mother Family Medical History: Hypertension Father Family Medical History: Hypertension Sister(s) Family Medical History: Thyroid Disorder Additional Family Medical History / Comment(s): Hypothyroid Medications and Allergies Home Medications Medication Instructions Recorded Confirmed Type DULoxetine HCL [Cymbalta] 60 mg PO HS 07/21/22 07/21/22 History lamoTRIgine [LaMICtal] 100 mg PO BID 07/21/22 07/21/22 History lisinopriL [Zestril] 5 mg PO DAILY 07/21/22 07/21/22 History Allergies Allergy/AdvReac Type Severity Reaction Status Date / Time No Known Allergies Allergy Verified 07/21/22 07:29 Physical Exam Vitals: Vital Signs Temp Pulse Resp BP Pulse Ox 07/21/22 10:10 16 07/21/22 09:48 97.6 F 16 119/86 07/21/22 07:35 16 07/20/22 20:36 98.5 F 114 H 22 120/88 100 Intake and Output 07/20/22 07/21/22 07/21/22 22:59 06:59 14:59 Other: Weight 117.934 kg Results CBC & Chem 7: 07/21/22 02:12 07/21/22 02:12 Labs: Abnormal Lab Results - Last 24 Hours (Table) 07/20/22 07/21/22 07/21/22 Range/Units 23:31 02:12 02:12 Neutrophils # 8.3 H (1.3-7.7) k/uL Glucose 128 H (74-99) mg/dL Total Bilirubin 4.8 H (0.2-1.3) mg/dL AST 288 H (14-36) U/L ALT 688 H (4-34) U/L Alkaline Phosphatase 191 H (38-126) U/L Urine Appearance Turbid H (Clear) Urine Protein Trace H (Negative) Urine Ketones 2+ H (Negative) Urine Bilirubin 2+ H (Negative) Amorphous Sediment Occasional H (None) /hpf Urine Bacteria Few H (None) /hpf Assessment and Plan Time with Patient: Less than 30
--- NOTE | 2022-07-21 13:47 | P.GSCN ---
History of Present Illness Consult date: 07/21/22 History of present illness: CHIEF COMPLAINT: Abdominal pain HISTORY OF PRESENT ILLNESS: This is a 26-year-old female presented to the ER with 4 day history of right upper quadrant and epigastric abdominal pain. She also has been having nausea and vomiting. Pain does radiate to the back. Patient states that she ate [employer] the day the symptoms started and was kelley ving severe epigastric pain rated 9 out of 10. She also went to urgent care on Wednesday due to the fact that her urine was dark. She was told that likely this was her gallbladder and referred to her PCP. However, patient continued to have vomiting and became concerned and came into the ER for further evaluation. She had diarrhea too. Gallbladder ultrasound shows multiple non-shadowing foci in th e gallbladder consistent with gallbladder polyps. No dilated ducts. Computed tomography scan shows cholelithiasis. Patient does have elevated total bilirubin and LFTs. She has been seen by GI service and is scheduled for an MRCP today. Patient reports that her pain has improved today and no further vomiting. She rates her pain about a 1 out of 10. Surgical service was consulted regards to the cholelithiasis and abdominal pain. Past surgical history includes . Denies any cardiac history. Patient denies any fever, chills or sweats. PAST MEDICAL HISTORY: Hypertension, asthma, anxiety and depression PAST SURGICAL HISTORY: MEDICATIONS: See list. ALLERGIES: See list. SOCIAL HISTORY: No illicit drug use. Denies any smoking or alcohol use REVIEW OF SYSTEMS: CONSTITUTIONAL: Denies fever or chills. HEENT: Denies blurred vision, vision changes, or eye pain. Denies hemoptysis CARDIOVASCULAR: Denies chest pain or pressure. RESPIRATORY: No shortness of breath. GASTROINTESTINAL: See HPI for pertinent findings HEMATOLOGIC: Denies bleeding disorders. GENITOURINARY: Denies any blood in urine or increased urinary frequency. SKIN: Denies pruitis. Denies rash. PHYSICAL EXAM: VITAL SIGNS: Reviewed GENERAL: Well-developed in no acute distress. HEENT: No sclera icterus. Extraocular movements grossly intact. Moist buccal mucosa. Head is atraumatic, normocephalic. No nasal drainage. ABDOMEN: Soft. Obese. Nondistended. Mild tenderness right upper quadrant NEUROLOGIC: Alert and oriented. Cranial nerves II through XII grossly intact. LABORATORY DATA: WBC 10.4 Hgb 13.7 platelets 341 Na 138 potassium is 4.2 creatinine 0.79 Glucose 128 Total bilirubin 4.8 AST 288 ALT 688 alk phos 191 Lipase 65 Hepatitis panel negative COVID-19 not detected IMAGING: Abdominal ultrasound and computed tomography scan as stated above ASSESSMENT: 1. Right upper quadrant and epigastric abdominal pain 2. Cholelithiasis 3. Possible choledocholithiasis 4. Elevated LFTs and total bilirubin PLAN: -Further recommendations forthcoming per surgeon -Patient scheduled for MRCP today -Await further GI recommendations -Continue IV fluids -Continue pain medication as needed -Continue Zofran as needed for nausea and vomiting Thank you for this consultation Physician Sand Car Worker note has been reviewed by physician. Signing provider agrees with the documented findings, assessment, and plan of care. Past Medical History Past Medical History: Asthma Additional Past Medical History / Comment(s): PCOS History of Any Multi-Drug Resistant Organisms: None Reported Past Surgical History: No Surgical Hx Reported Past Anesthesia/Blood Transfusion Reactions: No Reported Reaction Past Psychological History: Anxiety, Depression Smoking Status: Never smoker Past Alcohol Use History: Occasional Past Drug Use History: None Reported - Past Family History Mother Family Medical History: Hypertension Father Family Medical History: Hypertension Sister(s) Family Medical History: Thyroid Disorder Additional Family Medical History / Comment(s): Hypothyroid Medications and Allergies Home Medications Medication Instructions Recorded Confirmed Type DULoxetine HCL [Cymbalta] 60 mg PO HS 07/21/22 07/21/22 History lamoTRIgine [LaMICtal] 100 mg PO BID 07/21/22 07/21/22 History lisinopriL [Zestril] 5 mg PO DAILY 07/21/22 07/21/22 History Allergies Allergy/AdvReac Type Severity Reaction Status Date / Time No Known Allergies Allergy Verified 07/21/22 07:29 Surgical - Exam Vital Signs Temp Pulse Resp BP Pulse Ox 98.5 F 114 H 22 120/88 100 07/20/22 20:36 07/20/22 20:36 07/20/22 20:36 07/20/22 20:36 07/20/22 20:36 Results - Labs 07/21/22 02:12 07/21/22 02:12 Abnormal Lab Results - Last 24 Hours (Table) 07/20/22 07/21/22 07/21/22 Range/Units 23:31 02:12 02:12 Neutrophils # 8.3 H (1.3-7.7) k/uL Glucose 128 H (74-99) mg/dL Total Bilirubin 4.8 H (0.2-1.3) mg/dL AST 288 H (14-36) U/L ALT 688 H (4-34) U/L Alkaline Phosphatase 191 H (38-126) U/L Urine Appearance Turbid H (Clear) Urine Protein Trace H (Negative) Urine Ketones 2+ H (Negative) Urine Bilirubin 2+ H (Negative) Amorphous Sediment Occasional H (None) /hpf Urine Bacteria Few H (None) /hpf Diabetes panel 07/21/22 Range/Units 02:12 Sodium 138 (137-145) mmol/L Potassium 4.2 (3.5-5.1) mmol/L Chloride 102 (98-107) mmol/L Carbon Dioxide 22 (22-30) mmol/L BUN 7 (7-17) mg/dL Creatinine 0.79 (0.52-1.04) mg/dL Glucose 128 H (74-99) mg/dL Calcium 9.3 (8.4-10.2) mg/dL AST 288 H (14-36) U/L ALT 688 H (4-34) U/L Alkaline Phosphatase 191 H (38-126) U/L Total Protein 7.5 (6.3-8.2) g/dL Albumin 4.7 (3.5-5.0) g/dL Calcium panel 07/21/22 Range/Units 02:12 Calcium 9.3 (8.4-10.2) mg/dL Albumin 4.7 (3.5-5.0) g/dL Pituitary panel 07/21/22 Range/Units 02:12 Sodium 138 (137-145) mmol/L Potassium 4.2 (3.5-5.1) mmol/L Chloride 102 (98-107) mmol/L Carbon Dioxide 22 (22-30) mmol/L BUN 7 (7-17) mg/dL Creatinine 0.79 (0.52-1.04) mg/dL Glucose 128 H (74-99) mg/dL Calcium 9.3 (8.4-10.2) mg/dL Adrenal panel 07/21/22 Range/Units 02:12 Sodium 138 (137-145) mmol/L Potassium 4.2 (3.5-5.1) mmol/L Chloride 102 (98-107) mmol/L Carbon Dioxide 22 (22-30) mmol/L BUN 7 (7-17) mg/dL Creatinine 0.79 (0.52-1.04) mg/dL Glucose 128 H (74-99) mg/dL Calcium 9.3 (8.4-10.2) mg/dL Total Bilirubin 4.8 H (0.2-1.3) mg/dL AST 288 H (14-36) U/L ALT 688 H (4-34) U/L Alkaline Phosphatase 191 H (38-126) U/L Total Protein 7.5 (6.3-8.2) g/dL Albumin 4.7 (3.5-5.0) g/dL
--- NOTE | 2022-07-21 15:48 | P.CONS ---
History of Present Illness - Reason for Consult Consult date: 07/21/22 Acute hepatitis, jaundice Requesting physician: Saul Billy - Chief Complaint Epigastric pain, nausea and vomiting - History of Present Illness This is a pleasant 26-year-old female who presented to the emergency department as advised by urgent care. Patient started having epigastric abdominal pain which she states was severe, sharp radiating into her back on Wednesday. She states this then resolved however Wednesday and yesterday she had nausea and vomiting. She went to urgent care and they sent her home and told her to follow-up with her PCP. She returned later and they noted that she appeared to be jaundice and recommended she come to the emergency department. Patient states that she had been noticing that her urine was darker starting Wednesday or Wednesday. Denies any previous history of liver disease, denies any history of alcoholism. She states abdominal pain is improved since Wednesday however she continued to have nausea and vomiting. She is feeling better today with Zofran. She also denies any previous history of gallbladder disease. Admitting labs WBC 10.4 hemoglobin 13 hematocrit 29 platelet count 341,000 sodium 138 potassium 4.2 BUN 7 creatinine 0.79 total bilirubin 4.8 AST 288 ALT 688 alkaline phosphatase 191 amylase 39 lipase 65 hepatitis panel nonreactive Virus PCR not detected heterophile antibody negative Gallbladder ultrasound no focal liver defect. No renal obstruction. Multiple non-shadowing foci in the gallbladder consistent with gallbladder polyps. No dilated ducts. Next CT abdomen and pelvis with IV contrast reports cholelithiasis. Otherwise negative computed tomography scan abdomen and pelvis. Review of Systems REVIEW OF SYSTEMS: CARDIOPULMONARY: No chest pain or shortness of breath. Gastrointestinal: Severe epigastric pain on Wednesday lasting for up to a couple hours. No epigastric or abdominal pain currently. Nausea with vomiting. No hematemesis, coffee-ground emesis. No rectal bleeding, or melena. GENITOURINARY: No dysuria or hematuria. MUSCULOSKELETAL: Reports normal range of motion. SKIN: No rashes. No jaundice. ENDOCRINE: No chills, fevers. No excessive weight gain or loss. No polydipsia or polyuria. PSYCHIATRIC: Unremarkable. NEUROLOGY: No change in mental status. Denies dizziness, headache. ENT: Vision unremarkable. CONSTITUTIONAL: No recent weight loss. No fever, chills, night sweats. Past Medical History Past Medical History: Asthma Additional Past Medical History / Comment(s): PCOS History of Any Multi-Drug Resistant Organisms: None Reported Past Surgical History: No Surgical Hx Reported Past Anesthesia/Blood Transfusion Reactions: No Reported Reaction Past Psychological History: Anxiety, Depression Smoking Status: Never smoker Past Alcohol Use History: Occasional Past Drug Use History: None Reported - Past Family History Mother Family Medical History: Hypertension Father Family Medical History: Hypertension Sister(s) Family Medical History: Thyroid Disorder Additional Family Medical History / Comment(s): Hypothyroid Medications and Allergies Home Medications Medication Instructions Recorded Confirmed Type DULoxetine HCL [Cymbalta] 60 mg PO HS 07/21/22 07/21/22 History lamoTRIgine [LaMICtal] 100 mg PO BID 07/21/22 07/21/22 History lisinopriL [Zestril] 5 mg PO DAILY 07/21/22 07/21/22 History Allergies Allergy/AdvReac Type Severity Reaction Status Date / Time No Known Allergies Allergy Verified 07/21/22 07:29 Physical Exam Vitals: Vital Signs Temp Pulse Resp BP Pulse Ox 07/21/22 09:48 97.6 F 16 119/86 07/21/22 07:35 16 07/20/22 20:36 98.5 F 114 H 22 120/88 100 Intake and Output 07/20/22 07/21/22 07/21/22 22:59 06:59 14:59 Other: Weight 117.934 kg General appearance: The patient is alert, oriented, appears in no acute dis tress. Obese. HET: Head is normocephalic and atraumatic. Conjunctiva pink. Sclera anicteric. Neck: Supple without lymphadenopathy. Trachea midline. Heart: S1 S2. Regular rate and rhythm. Lungs: Clear to auscultation. Abdomen: Soft, nontender, nondistended with bowel sounds. No guarding or rig idity. Skin: No rashes. No jaundice. Extremities: Normal skin color and turgor. No pedal edema. Neurological: No focal deficits. Alert and oriented x3. Results CBC & Chem 7: 07/21/22 02:12 07/21/22 02:12 Labs: Abnormal Lab Results - Last 24 Hours (Table) 07/20/22 07/21/22 07/21/22 Range/Units 23:31 02:12 02:12 Neutrophils # 8.3 H (1.3-7.7) k/uL Glucose 128 H (74-99) mg/dL Total Bilirubin 4.8 H (0.2-1.3) mg/dL AST 288 H (14-36) U/L ALT 688 H (4-34) U/L Alkaline Phosphatase 191 H (38-126) U/L Urine Appearance Turbid H (Clear) Urine Protein Trace H (Negative) Urine Ketones 2+ H (Negative) Urine Bilirubin 2+ H (Negative) Amorphous Sediment Occasional H (None) /hpf Urine Bacteria Few H (None) /hpf Comments: Gallbladder ultrasound no focal liver defect. No renal obstruction. Multiple non-shadowing foci in the gallbladder consistent with gallbladder polyps. No dilated ducts. Next CT abdomen and pelvis with IV contrast reports cholelithiasis. Otherwise negative computed tomography scan abdomen and pelvis. Assessment and Plan (1) Transaminitis Narrative/Plan: 26-year-old female who had an acute onset of epigastric pain on Wednesday now resolved followed by noticing dark urine, subsequently increased nausea and vomiting. Patient was seen at urgent care sent to the emergency department for further evaluation noted to have elevation in her bilirubin, LFTs. Amylase and lipase within normal limits. Gallbladder ultrasound reports a non-shadowing foci reported as polyps, mild CBD dilation and 0.[address] of the abdomen and p kee reports cholelithiasis. Labs are consistent with likely CBD obstruction, however patient's symptoms significantly are improved. Would recommend MRCP to rule out CBD stone and repeat labs in the morning. If still concern for CBD obstruction/stone would recommend proceeding with ERCP. Current Visit: Yes Status: Acute Code(s): R74.01 - ELEVATION OF LEVELS OF LIVER TRANSAMINASE LEVELS SNOMED Code(s): 046832091 (2) Hyperbilirubinemia Current Visit: Yes Status: Acute Code(s): E80.6 - OTHER DISORDERS OF BILIRUBIN METABOLISM SNOMED Code(s): 32301924 (3) Cholelithiasis Current Visit: Yes Status: Acute Code(s): K80.20 - CALCULUS OF GALLBLADDER W/O CHOLECYSTITIS W/O OBSTRUCTION SNOMED Code(s): 565725138 Plan: 1. Continue symptomatic and supportive care 2. Continue antiemetics as needed 3. Pain medications as needed 4. MRCP ordered 5. Keep patient nothing by mouth until MRCP completed then may have clear liquid diet 6. Nothing by mouth after midnight 7. Repeat CBC, CMP, INR in the morning 8. Gen. surgery consulted for cholelithiasis, patient requesting Dr. Mcgee Thank you for this consultation, we will continue to follow. Dr. Ayad De Los Santos I agree with the dictator's note, documented as a scribe by Loni Rodriguez.
[2022-07-21] MEDS: lamoTRIgine 100 MG TAB PO SCH (19:55)
[2022-07-21] MEDS ORDERED: DULoxetine HCL 60 MG CAPSULE.DR PO SCH (21:00)
[2022-07-22] MEDS: HEPARIN SODIUM,PORCINE/PF 5,000 UNIT/0.5 ML SYRINGE SQ SCH ×2 (07:48→15:28)
[2022-07-22] MEDS ORDERED: FAMOTIDINE 20 MG/2 ML VIAL IV SCH (09:00)
[2022-07-22] MEDS: SODIUM CHLORIDE 0.9% 1,000 ML IV SCH ×2 (09:25→15:27)
[2022-07-22] MEDS: lamoTRIgine 100 MG TAB PO SCH (09:25)
[2022-07-22 11:10] LABS: African American GFR (CKD) 116.3 (60.0-200.0); Albumin 3.8 g/dL (3.8-4.9); Albumin/Globulin Ratio 1.58 (1.60-3.17); Anion Gap 13.5 mmol/L (10.00-18.00); BUN/Creat Ratio 7.5 Ratio (12.00-20.00); Calcium 8.6 mg/dL (8.7-10.3); Carbon Dioxide 20.5 mmol/L (20.0-27.5); Globulin 2.4 g/dL (1.6-3.3); Non-African American GFR(CKD) 100.3 (60.0-200.0); Potassium 4.1 mmol/L (3.5-5.5); Total Bilirubin 2.3 mg/dL (0.30-1.20); Total Protein 6.2 g/dL (6.2-8.2)
--- NOTE | 2022-07-22 11:44 | P.PN ---
Subjective Progress Note Date: 07/22/22 CHIEF COMPLAINT: Abdominal pain HISTORY OF PRESENT ILLNESS: Patient undergoing ERCP today for possible ch oledocholithiasis. She currently denies any abdominal pain. Denies any nausea or vomiting. Afebrile. She has been mildly tachycardic heart rate 108. Total bilirubin has come down from 4.8-2.3 AST 288 down to 148 ALT 688 down to 442 alk phos 191 down to 161 PHYSICAL EXAM: VITAL SIGNS: Reviewed. GENERAL: Well-developed in no acute distress. HEENT: No sclera icterus. Extraocular movements grossly intact. Moist buccal mucosa. Head is atraumatic, normocephalic. ABDOMEN: Soft. Nondistended. Nontender. NEUROLOGIC: Alert and oriented. Cranial nerves II through XII grossly intact. ASSESSMENT: 1. Right upper quadrant and epigastric abdominal pain 2. Cholelithiasis 3. Possible choledocholithiasis 4. Elevated LFTs and total bilirubin PLAN: -Patient scheduled for ERCP today with GI service -Continue supportive care -Continue antibiotics -Continue IV fluids -Further recommendations forthcoming per surgeon Physician Residential Pest Control Technician note has been reviewed by physician. Signing provider agrees with the documented findings, assessment, and plan of care. I have personally seen and examined the patient, reviewed the SKI MAKER /PAs history, exam and MDM and agree with the assessment and plan as written. Based on total visit time, I have performed more than 50% of the visit. As above: Patient's labs today are improved. Urine remained dark. She was taken for ERCP rather than MRCP. Case was reviewed with Dr. Helm. ERCP results are normal. She feels well at this time. We discussed options of cholecystectomy tomorrow or as outpatient next week. She would prefer to go home today if possible. If she is discharged we'll arrange for laparoscopic cholecystectomy next week. We'll check preoperative CMP. Objective - Vital Signs Vital signs: Vital Signs Temp 98.6 F 07/22/22 05:00 Pulse 108 H 07/22/22 10:06 Resp 18 07/22/22 10:06 BP 104/65 07/22/22 05:00 Pulse Ox 98 07/22/22 05:00 FiO2 Intake & Output 07/21/22 07/22/22 07/22/22 18:59 06:59 18:59 Intake Total 900 Balance 900 Weight 117.934 kg Intake: Intake, IV Titration 900 Amount Sodium Chloride 0.9% 1, 900 000 ml @ 75 mls/hr IV . [id number] [facility] Rx#:[id number] Other: Voiding Method Toilet - Labs CBC & Chem 7: 07/21/22 02:12 07/22/22 06:20 Labs: Abnormal Lab Results - Last 24 Hours (Table) 07/22/22 Range/Units 06:20 BUN 6.0 L (9.0-27.0) mg/dL BUN/Creatinine Ratio 7.50 L (12.00-20.00) Ratio Calcium 8.6 L (8.7-10.3) mg/dL Total Bilirubin 2.30 H (0.30-1.20) mg/dL AST 148 H (13-35) U/L ALT 442 H (8-44) U/L Alkaline Phosphatase 161 H (41-126) U/L Albumin/Globulin Ratio 1.58 L (1.60-3.17) g/dL
[2022-07-22] MEDS ORDERED: LEVOFLOXACIN 500MG-D5W PMX 500 MG in DEXTROSE/WATER 1 100ML.BAG IVPB SCH (12:00)
[2022-07-22] MEDS ORDERED: INDOMETHACIN 50MG SUPPOSITORY RECTAL ONE (12:00)
[2022-07-22 12:18] LABS: INR 0.95 (0.90-1.11); Prothrombin Time 10.5 sec (9.9-11.9)
[2022-07-22] MEDS ORDERED: LIDOCAINE 2% INJ 20 MG/ML (2 ML VIAL) ONE (12:44)
[2022-07-22] MEDS ORDERED: SUCCINYLCHOLINE CHLORIDE 200 MG/10 ML VIAL IV ONE (12:44)
[2022-07-22] MEDS ORDERED: MIDAZOLAM 2 MG/2 ML VIAL ONE (12:44)
[2022-07-22] MEDS ORDERED: ONDANSETRON 4 MG/2 ML VIAL ONE (12:44)
[2022-07-22] MEDS ORDERED: fentaNYL (PF) 50 MCG/ML 2 ML AMP ONE (12:44)
[2022-07-22] MEDS ORDERED: PROPOFOL 10 MG/ML 20 ML VIAL IV ONE (12:44)
[2022-07-22] MEDS ORDERED: IOPAMIDOL-300 50ML BTL MISCELLANE ONE (13:00)
--- NOTE | 2022-07-22 13:07 | P.PCN ---
Date of Procedure: 07/22/22 Procedure(s) Performed: Brief history: Patient is a 26 year-old pleasant lady scheduled for an ERCP as part of evaluation of abdominal pain and elevated serum transaminases and jaundice for the last [address] of abdomen revealed gallstones and mild dilation of the common bile duct. Bilirubin was 4.8 with elevated serum transaminases. Procedure performed: ERCP Preoperative diagnoses: Elevated LFTs/jaundice and epigastric pain rule out CBD stone IV sedation per anesthesia: Procedure: After informed consent was obtained from the patient and after the risks benefits and complications including bleeding perforation and pancreatitis explained in detail the patient was brought into the endoscopy unit. The patient was placed in prone position and IV conscious sedation was administered by anesthesia under continuous monitoring. The Olympus side-viewing duodenoscope was then inserted into the mouth and esophagus intubated without any difficulty. The scope was gradually advanced into the stomach and duodenum. The major papilla was identified without any difficulty. Initial cannulation resultedin location of the common bile duct that appeared normal with no dilation. No filling defects were noted. No intrahepatic biliary dilation seen. There was free flowing of the bile noted. Cystic duct appeared patent. The pancreatic duct was intentionally not cannulated. Patient tolerated the procedure well. Impression: Normal-appearing common bile duct with no evidence of filling defects or strictures seen. Pancreatic duct intentionally not cannulated Recommendations: The findings of this examination were discussed with the patient as well as a family. She will be started on clear liquid diet. We'll follow labs closely. Proceed with laparoscopic cholecystectomy by
[2022-07-22] MEDS ORDERED: IV FLUID CONTINUATION 1,000 ML IV ONE ×2 (13:19)
[2022-07-22] MEDS ORDERED: diphenhydrAMINE 50 MG/ML 1 ML VIAL IVP ONE (13:51)
--- NOTE | 2022-07-22 13:59 | FL ---
Intraoperative/procedural fluoroscopic services were provided. Total fluoroscopy time is 36.9 seconds with a total of 3 submitted images to PACS. Please see the operative/procedural note for further det ails.
--- NOTE | 2022-07-22 15:19 | P.PN ---
Subjective Progress Note Date: 07/22/22 This is a 26 year old female with medical history of asthma, polycystic ovarian syndrome, anxiety/depression. She presents to the emergency room with complaints of right upper quadrant pain and also generalized diffuse abdominal pain sharp in nature. Pain is exacerbated by eating and also palpation. Pain states she had drank alcohol Wednesday night, the pain began Wednesday morning was crampy and sharp. She had vomited a few times Wednesday. She went to urgent care wednesday for complaints of abdominal pain and dehydration, she does report her urine seemed dark. They did a urinalysis and told her to follow up with her PCP. The pain seemed to improved, she ate [employer] Wednesday evening. She also reports having liquid stool on wednesday. The pain then worsened and she reported to a different urgent care who sent the patient to the hospital for further evaluation. She denies fever or chills. No chest pain, no shortness of breath. No hematuria, hemetemsis or bloody stool. No previous issues with gallbladder. KUB xray showing non acute abdomen. Gallbladder ultrasound showing multiple nonshadowing foci in the gallbladder consistent with polyps, no dilated ducts. Abdominal pelvis CT showing cholelisthiasis. Patient does not have a white count, however total bilirubin is elevated at 4.8, AST 288, ALT 688, alk phos 191. Hepatitis panel is negative. Urine is showing 2+ bili. Patient is placed NPO and receiving IV hydration with normal saline. She received a dose of zosyn in the EC. GI services has been placed for consultation. 07/22/2022 Patient is evaluated today sitting up in chair. She reports overall feeling well, tolerated clear liquid diet last night. She underwent ERCP today with Dr. Ayad De Los Santos and bile duct was found to be normal appearing. She is scheduled to undergo laproscopic cholecystectomy tomorrow with Dr Mcgee. Labs today showing BUN 6.0, creatinine 0.8, total bili has improved to 2.30, AST/ALT/Alk phos have improved also. She remains afebrile, heart rate in the 80s to 90s, blood pressure 136/86, 97% room air. Patient is . Review of Systems Constitutional: Denied any fatigue denied any fever. Cardio vascular: denied any chest pain, palpitations Gastrointestinal: denied any nausea, vomiting, diarrhea Pulmonary: Denied any shortness of breath cough Neurologic denied any new focal deficits All inpatient medications were reviewed and appropriate changes in these medications as dictated in the interval history and assessment and plan. PHYSICAL EXAMINATION: GENERAL: The patient is alert and oriented x3, not in any acute distress. Well developed, well nourished. HEENT: Pupils are round and equally reacting to light. EOMI. No scleral icterus. No conjunctival pallor. Normocephalic, atraumatic. No pharyngeal erythema. No thyromegaly. CARDIOVASCULAR: S1 and S2 present. No murmurs, rubs, or gallops. PULMONARY: Chest is clear to auscultation, no wheezing or crackles. ABDOMEN: Soft, mild tenderness right upper quadrant , nondistended, normoactive bowel sounds. No palpable organomegaly. MUSCULOSKELETAL: No joint swelling or deformity. EXTREMITIES: No cyanosis, clubbing, or pedal edema. NEUROLOGICAL: Gross neurological examination did not reveal any focal deficits. SKIN: No rashes. Assessment and Plan Assessment Acute abdominal pain possibly from cholelisthiasis, no evidence for dilated common bile duct Elevated transaminases secondary to above History hypertension takes lisinopril which is held at this time patient is normotensive History of asthma no acute exacerbation History PCOS Anxiety/Depression GI Prophylaxis DVT Prophylaxis Full Code Plan Clear liquid diet, NPO after midnight Continue IV fluids, pain management, antiemetics Patient scheduled to under go laproscopic cholecystecomy tomorrow The impression and plan of care has been dictated by Melida Mathews, Nurse Practitioner as directed. Dr. Moi MD I have performed a history and physical examination and medical decision making of this patient, discussed the same with the dictator, and agree with the dictators assessment and plan as written, documented as a scribe. Based on total visit time, I have performed more than 50% of this visit. Objective - Vital Signs Vital signs: Vital Signs Temp 97.2 F L 07/22/22 13:16 Pulse 93 07/22/22 14:00 Resp 16 07/22/22 14:00 BP 136/86 07/22/22 14:00 Pulse Ox 97 07/22/22 14:00 FiO2 Intake & Output 07/21/22 07/22/22 07/22/22 18:59 06:59 18:59 Intake Total 900 150 Balance 900 150 Weight 117.934 kg Intake: IV 150 Intake, IV Titration 900 Amount Sodium Chloride 0.9% 1, 900 000 ml @ 75 mls/hr IV . [id number] [facility] Rx#:[id number] Other: Voiding Method Toilet - Labs CBC & Chem 7: 07/21/22 02:12 07/22/22 06:20 Labs: Abnormal Lab Results - Last 24 Hours (Table) 07/22/22 Range/Units 06:20 BUN 6.0 L (9.0-27.0) mg/dL BUN/Creatinine Ratio 7.50 L (12.00-20.00) Ratio Calcium 8.6 L (8.7-10.3) mg/dL Total Bilirubin 2.30 H (0.30-1.20) mg/dL AST 148 H (13-35) U/L ALT 442 H (8-44) U/L Alkaline Phosphatase 161 H (41-126) U/L Albumin/Globulin Ratio 1.58 L (1.60-3.17) g/dL Assessment and Plan Time with Patient: Less than 30
[2022-07-22 17:04] VITALS: RESP 17
[2022-07-22 18:17] VITALS: BP 114/83; PULSE 89; TEMP 97.7
--- NOTE | 2022-07-24 16:22 | P.DS ---
Providers Date of admission: 07/21/22 02:55 Attending physician: Rosas Vance MD Consults: 07/21/22 02:57 Consult Physician Urgent Consulting Provider: Holly De Los Santos Consult Reason/Comments: Hepatitis, jaundice, right upper quadrant pain Do you want consulting provider notified?: Yes, Notify in am 07/21/22 11:10 Consult Physician Routine Consulting Provider: Jose Mcgee Consult Reason/Comments: cholelithiasis, abdominal pain Do you want consulting provider notified?: Yes Primary care physician: Quan Saini Hospital Course: Diagnosis Acute abdominal pain possibly from cholelisthiasis, no evidence for dilated common bile duct Elevated transaminases secondary to above History hypertension takes lisinopril which is held at this time patient is normotensive History of asthma no acute exacerbation History PCOS Anxiety/Depression Discharge Disposition Patient is stable for discharge. Her labs are improving. GI has okay patient to proceed with laproscopic cholecystectomy. Patients abdominal pain has improved, no evidence for acute cholecystitis. Patient would like to follow up with Dr Mcgee outpatient to schedule. Hospital Course This is a 26 year old female with medical history of asthma, polycystic ovarian syndrome, anxiety/depression. She is currently nursing. She presents to the emergency room with complaints of right upper quadrant pain and also generalized diffuse abdominal pain sharp in nature. Pain is exacerbated by eating and also palpation. Pain states she had drank alcohol Wednesday night, the pain began Wednesday morning was crampy and sharp. She had vomited a few times Wednesday. She went to urgent care wednesday for complaints of abdominal pain and dehydration, she does report her urine seemed dark. They did a urinalysis and told her to follow up with her PCP. The pain seemed to improved, she ate [employer] Wednesday evening. She also reports having liquid stool on wednesday. The pain then worsened and she reported to a different urgent care who sent the patient to the hospital for further evaluation. She denies fever or chills. No chest pain, no shortness of breath. No hematuria, hemetemsis or bloody stool. No previous issues with gallbladder. KUB xray showing non acute abdomen. Gallbladder ultrasound showing multiple nonshadowing foci in the gallbladder consistent with polyps, no dilated ducts. Abdominal pelvis CT showing cholelisthiasis. Patient does not have a white count, however total bilirubin is elevated at 4.8, AST 288, ALT 688, alk phos 191. Hepatitis panel is negative. Urine is showing 2+ bili. Patient is placed NPO and receiving IV hydration with normal saline. She received a dose of zosyn in the EC, she is admitted for further evaluation and GI services has been placed for consultation. Patient underwent ERCP which reveals normal appearing common bile duct with no evidence of filling defects or strictures seen. Pancreatic duct intentionally not cannulated. Patient was okay to started clear liquid diet which she is i nstructed to advance as tolerated. She has discussed with Dr Mcgee and he will follow up with her outpatient for laproscopic cholecystectomy. 07/22/2022 Patient is evaluated today sitting up in chair. She reports minimal abdominal pain mostly right upper quadrant probably a 2/10 and states it is controlled with tylenol. She denies nausea, no vomiting, no further episodes of diarrhea. No chest pain, no shortness of breath. Vitals showing temp 97.7, heart rate 89, blood pressure 114/83, 96% room air. Her most recent labs showing sodium 138, potassium 4.1, BUN 6, creatinine 0.8, glucose 83, total bili 2.3, AST 148, ALT 442, Alk phos 161. Covid negative and hepatitis negative. Her lungs are clear, S1 S2 auscultated. Focal neurological exam is negative. Positive bowel sounds. Patient is discharged with repeat labs. Follow up primary care and Dr Mcgee. Please see medication reconciliation for a list of current recommendations. Thank you for allowing us to participate in the care of this patient. The impression and plan of care has been dictated by Melida Mathews, Nurse Practitioner as directed. Dr. Moi MD I have performed a history and physical examination and medical decision making of this patient, discussed the same with the dictator, and agree with the dictators assessment and plan as written, documented as a scribe. Based on total visit time, I have performed more than 50% of this visit. Patient Condition at Discharge: Stable Plan - Discharge Summary Discharge Rx Participant: Yes New Discharge Prescriptions: New Famotidine [Pepcid] 20 mg PO DAILY #30 tablet Continue lamoTRIgine [LaMICtal] 100 mg PO BID DULoxetine HCL [Cymbalta] 60 mg PO HS Discontinued lisinopriL [Zestril] 5 mg PO DAILY Discharge Medication List DULoxetine HCL [Cymbalta] 60 mg PO HS 07/21/22 [History] lamoTRIgine [LaMICtal] 100 mg PO BID 07/21/22 [History] Famotidine [Pepcid] 20 mg PO DAILY #30 tablet 07/22/22 [Rx] Follow up Appointment(s)/Referral(s): Jose Mcgee MD [Medical Doctor] - 1 Week Quan Saini DO [Primary Care Provider] - 1-2 days Ambulatory/Diagnostic Orders: Comprehensive Metabolic Panel [LAB.AMB] Time Frame: 2 Days, Location: None Selected Patient Instructions/Handouts: Gallstones (DC), Low Fat Diet (DC) Activity/Diet/Wound Care/Special Instructions: Tylenol for pain management Continue with low fat/soft diet Repeat CMP in 2 to 3 days outpatient Follow up with PCP in 1 to 2 days Follow up with Dr. Mcgee outpatient as directed to scheduled laproscopic cholecystectomy Return to emergency center if abdominal pain increases, unable to tolerate diet, fever develops. Discharge Disposition: HOME SELF-CARE
== END 2022-07-22 19:14 | disposition home or self-care (01) | DRG 446 ==
LOC: EC 19:24 → 4SSUR 07-21 02:55 → 5NMEDONC 07-21 18:08
PROVIDERS: ADMIT Internal Medicine; ATTEND Internal Medicine
PROC: 0FJB8ZZ Inspection of Hepatobiliary Duct, Via Natural or Artificial Opening Endoscopic (ICD-10-PCS; principal; 2022-07-22 07:30)
DX: K80.21 Calculus of gallbladder without cholecystitis with obstruction (principal); E86.0 Dehydration; F32.A Depression, unspecified; F41.9 Anxiety disorder, unspecified; I10 Essential (primary) hypertension; E28.2 Polycystic ovarian syndrome; J45.909 Unspecified asthma, uncomplicated; Z20.822 Contact with and (suspected) exposure to COVID-19; Z79.899 Other long term (current) drug therapy
CPT/HCPCS: 36415; 43260; 74018; 74177; 74330; 76705; 80053; 80074; 81001; 81025; 82150; 83690; 85025; 85610; 86308; 87635; 96361; 96365; 96366; 96372; 96375; 99285

== ENCOUNTER 2022-07-28 12:34 | Day surgery (SDC) | payer MEDICAID ==
[2022-07-24 12:25] VITALS: BMI 45.4
[~2022-07-28 12:34] MED LIST: ACETAMINOPHEN TAB 500 MG TAB PO PRN; HEPARIN SODIUM,PORCINE/PF 5,000 UNIT/0.5 ML SYRINGE SQ PRN; ceFAZolin 3 GM in SODIUM CHLORIDE 0.9% 100 ML IVPB PRN
[2022-07-28] MEDS ORDERED: ONDANSETRON 4 MG/2 ML VIAL ONE (13:15)
[2022-07-28] MEDS ORDERED: LACTATED RINGERS 1,000 ML IV ONE (13:20)
[2022-07-28 13:24] VITALS: RESP 16
[2022-07-28] MEDS ORDERED: ACETAMINOPHEN TAB 500 MG TAB ONE (13:27)
--- NOTE | 2022-07-28 14:05 | P.GSHP ---
History of Present Illness H&P Date: 07/28/22 Chief Complaint: Cholecystitis 26-year-old female was hospitalized last week with cholecystitis and choledocholithiasis. She underwent ERCP which was clear. Doing well since discharge. She has had clear urine. Minimal discomfort. Here today for cholecystectomy. Past Medical History Past Medical History: Asthma, Hypertension Additional Past Medical History / Comment(s): PCOS. GALLBLADDER DISORDER. NO LONGER ON MEDS FOR HTN History of Any Multi-Drug Resistant Organisms: None Reported Past Surgical History: Section Additional Past Surgical History / Comment(s): ERCP-07/22/22 Past Anesthesia/Blood Transfusion Reactions: No Reported Reaction Smoking Status: Never smoker - Past Family History Mother Family Medical History: Hypertension Father Family Medical History: Hypertension Sister(s) Family Medical History: Thyroid Disorder Additional Family Medical History / Comment(s): Hypothyroid Medications and Allergies Home Medications Medication Instructions Recorded Confirmed Type DULoxetine HCL [Cymbalta] 60 mg PO HS 07/21/22 07/28/22 History lamoTRIgine [LaMICtal] 100 mg PO BID 07/21/22 07/28/22 History Famotidine [Pepcid] 20 mg PO DAILY #30 tablet 07/22/22 07/28/22 Rx Allergies Allergy/AdvReac Type Severity Reaction Status Date / Time No Known Allergies Allergy Verified 07/28/22 13:20 Surgical - Exam Vital Signs Temp Pulse Resp BP Pulse Ox 97.1 F L 109 H 16 140/85 97 07/28/22 13:04 07/28/22 13:04 07/28/22 13:04 07/28/22 13:04 07/28/22 13:04 Physical exam: General: Well-developed, well-nourished HEENT: Normocephalic, sclerae nonicteric Abdomen: Nontender, nondistended Extremities: No edema Neuro: Alert and oriented Assessment and Plan (1) Choledocholithiasis with acute cholecystitis Narrative/Plan: 26-year-old female with recent choledocholithiasis. We'll proceed with laparoscopic cholecystectomy, possible open cholecystectomy at this time. Risks of bleeding, infection, bile leak, bile duct injury, retained common bile duct stone, trocar injury, conversion to an open procedure, hernia, anesthesia related complications were reviewed. The patient understands and wishes to proceed. Current Visit: Yes Status: Acute Code(s): K80.42 - CALCULUS OF BILE DUCT W ACUTE CHOLECYSTITIS W/O OBSTRUCTION SNOMED Code(s): 52491336
[2022-07-28] MEDS ORDERED: ROCURONIUM 10 MG/ML (5 ML VIAL) IV ONE (14:25)
[2022-07-28] MEDS ORDERED: PROPOFOL 10 MG/ML 20 ML VIAL IV ONE (14:25)
[2022-07-28] MEDS ORDERED: SUCCINYLCHOLINE CHLORIDE 200 MG/10 ML VIAL IV ONE (14:25)
[2022-07-28] MEDS ORDERED: fentaNYL (PF) 50 MCG/ML 2 ML AMP ONE (14:25)
[2022-07-28] MEDS ORDERED: NEOSTIGMINE 1 MG/ML 10 ML VIAL ONE (14:25)
[2022-07-28] MEDS ORDERED: KETOROLAC 15 MG/ML 1 ML VIAL ONE (14:25)
[2022-07-28] MEDS ORDERED: GLYCOPYRROLATE 0.2 MG/ML 2 ML VIAL ONE (14:25)
[2022-07-28] MEDS ORDERED: HYDROmorphone (PF) 1 MG/ML ONE (14:25)
[2022-07-28] MEDS ORDERED: LIDOCAINE 2% INJ 20 MG/ML (2 ML VIAL) ONE (14:25)
[2022-07-28] MEDS ORDERED: MIDAZOLAM 2 MG/2 ML VIAL ONE (14:25)
[2022-07-28 14:35] LABS: ALT 166 U/L (4-34); AST 61 U/L (14-36); African American GFR (CKD) >90 (>60 ml/min/1.73 sqM); Albumin 4.4 g/dL (3.5-5.0); Alkaline Phosphatase 150 U/L (38-126); Anion Gap 12 mmol/L; Blood Urea Nitrogen 12 mg/dL (7-17); Calcium 9.1 mg/dL (8.4-10.2); Carbon Dioxide 23 mmol/L (22-30); Chloride 103 mmol/L (98-107); Glucose 91 mg/dL (74-99); Non-African American GFR(CKD) >90 (>60 ml/min/1.73 sqM); Potassium 4.4 mmol/L (3.5-5.1); Sodium 138 mmol/L (137-145); Total Bilirubin 1.1 mg/dL (0.2-1.3); Total Protein 7.2 g/dL (6.3-8.2)
[2022-07-28] MEDS ORDERED: BUPIVACAIN-EPI 0.25%-1:200,000 30 ML VIAL SQ ONE ×2 (14:46)
--- NOTE | 2022-07-28 15:31 | P.OP ---
Date of Procedure: 07/28/22 Procedure(s) Performed: PREOPERATIVE DIAGNOSIS: Choledocholithiasis POSTOPERATIVE DIAGNOSIS: Same PROCEDURE: Laparoscopic cholecystectomy SURGEON: Arely EBL: Minimal see anesthesia record ANESTHESIA: Gen. COMPLICATIONS: None OPERATIVE PROCEDURE: The patient was brought and placed on the operating room table in the supine position. The patient was placed under general anesthesia at that time. The abdomen was prepped and draped in the usual sterile fashion. A small vertical infraumbilical incision was made. The fascia was grasped with the Nisa forceps. The fascia was retracted anteriorly. The Veress needle was advanced into the peritoneal cavity. The saline drop test was normal. Insufflation took place up to 15 mmHg. A 5 mm optical trocar was advanced and the peritoneal cavity. 2 additional 5 mm trochars were placed in the right upper quadrant under direct visualization. A 12 mm trocar was advanced into the epigastric incision site. The gallbladder was retracted superiorly and laterally. The peritoneum overlying the infundibulum was bluntly dissected. The patient's cystic duct was visualized. The junction between the cystic duct common and hepatic duct was identified. The critical view of safety was achieved after blunt dissection. The cystic duct was then divided after placement of 3 12 mm clips on the patient's side and one on the specimen side. The cystic artery was identified and clipped as well. A small vessel was seen along the gallbladder fossa and clipped as well. The gallbladder was then removed from the liver bed using electrocautery. The gallbladder was then removed from the epigastric trocar site with an Endo Catch bag. The gallbladder fossa was irrigated with saline. There was no evidence of any bleeding or biliary drainage seen. The fascia at the 12 millimeter site was closed using a Madi-Usama 0 Vicryl stitch. The trochars were then removed. The skin at all 4 sites was closed using a 4-0 Monocryl stitch. Skin glue was utilized on the incision sites. At the end of this procedure the sponge and needle counts were correct. DISPOSITION: Stable to the recovery room
[2022-07-28 15:40] VITALS: TEMP 97.7
[2022-07-28] MEDS ORDERED: HYDROmorphone 0.5 MG/0.5 ML SYRINGE IVP ONE (15:59)
[2022-07-28 16:44] VITALS: BP 107/55; PULSE 79
[2022-07-28] MEDS ORDERED: ACETAMINOPHEN TAB 325 MG TAB PO SCH (18:00)
[2022-07-28] MEDS ORDERED: IBUPROFEN 600 MG TAB PO SCH (18:30)
== END 2022-07-28 17:59 | disposition home or self-care (01) ==
LOC: OR 12:34
PROVIDERS: ATTEND Surgery
DX: K80.44 Calculus of bile duct with chronic cholecystitis without obstruction (principal); I10 Essential (primary) hypertension; J45.909 Unspecified asthma, uncomplicated; E07.9 Disorder of thyroid, unspecified; Z79.899 Other long term (current) drug therapy
CPT/HCPCS: 47562; 81025; 88304; 80053; J2250; J0330; J2710; J0690; J2405; J3010; J1170 ×2; J1885; J2704; J1644; J2001

== ENCOUNTER → 2023-02-09 | Outpatient (CLI) | payer MEDICAID ==
--- NOTE | 2023-02-10 10:20 | CA ---
Transthoracic Echo Report Name: Elo Tran Age: 27 Gender: F : 1995 Exam Date: 02/09/2023 13:07 Exam Location: [facility] Ht (in): 63 Wt (lb): 270 Ordering Physician: Quan Saini DO Attending/Referring Phys: Chrome Plater Sergio Go RDCS Procedure CPT: Indications: R00.0 TACHYCARDIA, UNSPECIFIED Cardiac Hx: Obesity; Sinus Tachycardia Technical Quality: Fair Contrast 1: Total Dose (mL): Contrast 2: Total Dose (mL): MEASUREMENTS (Male / Female) Normal Values 2D ECHO LV Diastolic Diameter PLAX 4.1 cm 4.2 - 5.9 / 3.9 - 5.3 cm LV Systolic Diameter PLAX 3.4 cm LV Fractional Shortening PLAX 17.2 % IVS Diastolic Thickness 1.2 cm 0.6 - 1.0 / 0.6 - 0.9 cm IVS Systolic Thickness 1.2 cm LVPW Diastolic Thickness 1.1 cm 0.6 - 1.0 / 0.6 - 0.9 cm LVPW Systolic Thickness 1.5 cm LV Relative Wall Thickness 0.6 RV Internal Dim ED PLAX 2.6 cm LVOT Diameter 2.2 cm LA Systolic Diameter LX 2.8 cm 3.0 - 4.0 / 2.7 - 3.8 cm LV Diastolic Volume MOD BP 94.0 cm??? 67 - 155 / 56 - 104 cm??? LV Systolic Volume MOD BP 29.9 cm??? 22 - 58 / 19 - 49 cm??? LV Ejection Fraction MOD BP 68.2 % >= 55 % LV Stroke Volume MOD BP 64.1 cm??? LV Diastolic Volume MOD 4C 95.2 cm??? LV Systolic Volume MOD 4C 32.2 cm??? LV Ejection Fraction MOD 4C 66.2 % LV Stroke Volume MOD 4C 63.0 cm??? LV Diastolic Length 4C 8.1 cm LV Systolic Length 4C 6.0 cm LV Diastolic Volume MOD 2C 87.3 cm??? LV Systolic Volume MOD 2C 27.5 cm??? LV Ejection Fraction MOD 2C 68.5 % LV Stroke Volume MOD 2C 59.8 cm??? LV Diastolic Length 2C 7.6 cm LV Systolic Length 2C 5.7 cm Ascending Aorta Diameter 2.4 cm M-MODE Aortic Root Diameter MM 3.5 cm LA Systolic Diameter MM 3.5 cm LA Ao Ratio MM 1.0 AV Cusp Separation MM 1.8 cm DOPPLER AV Peak Velocity 137.0 cm/s AV Peak Gradient 7.5 mmHg MV Deceleration [place] 570.4 cm/s??? Mitral E Point Velocity 71.6 cm/s Mitral A Point Velocity 85.4 cm/s Mitral E to A Ratio 0.8 MV Deceleration Time 125.6 ms MV E' Velocity 9.9 cm/s Mitral E to MV E' Ratio 7.2 TR Peak Velocity 106.8 cm/s TR Peak Gradient 4.6 mmHg Right Ventricular Systolic Press 9.6 mmHg PV Peak Velocity 87.8 cm/s PV Peak Gradient 3.1 mmHg FINDINGS Left Ventricle Left ventricular ejection fraction is estimated at 55-60 %. Mild concentric left ventricular hypertrophy. Grade 1 diastolic dysfunction. Normal basal systolic function. Right Ventricle Normal right ventricular size and function. Right Atrium Normal right atrial size. Left Atrium Normal left atrial size. Myxomatous IAS. Mitral Valve Structurally normal mitral valve. Aortic Valve Trileaflet aortic valve. Tricuspid Valve Structurally normal tricuspid valve. Trace to mild tricuspid regurgitation. Pulmonic Valve Pulmonic valve not well visualized. Pericardium Normal pericardium. No pericardial effusion. Aorta Normal size aortic root and proximal ascending aorta. CONCLUSIONS Technically suboptimal study. LV systolic function is well-preserved mild mitral and tricuspid regurgitation no pericardial effusion. Right-sided pressures are not well quantified Previewed by: Dr. Luzma Vaughan MD (Electronically Signed) Final Date: 10 February 2023 10:19
== END | disposition home or self-care (01) ==
LOC: RADECHMAIN 12:52
PROVIDERS: ATTEND Family Medicine
DX: I08.1 Rheumatic disorders of both mitral and tricuspid valves (principal); R00.0 Tachycardia, unspecified
CPT/HCPCS: 93306

== ENCOUNTER 2025-06-02 23:21 | Emergency (ER) | payer MEDICAID, OTHER ==
[2025-06-03] MEDS: SODIUM CHLORIDE 0.9% 1,000 ML IV ONE (00:04)
[2025-06-03] MEDS: ACETAMINOPHEN TAB 500 MG TAB PO STA (00:04)
[2025-06-03] MEDS: FAMOTIDINE 20 MG/2 ML VIAL IV STA (00:04)
[2025-06-03] MEDS: MAG HYDROX/AL HYDROX/SIMETH 30 ML CUP PO STA (00:04)
--- NOTE | 2025-06-03 00:04 | ED ---
General Adult HPI - General Chief complaint: Abdominal Pain Stated complaint: 18 wks - Abd Pain Time Seen by Provider: 06/02/25 23:35 Source: patient Mode of arrival: ambulatory Limitations: no limitations - History of Present Illness Initial comments: 29-year-old female 18 weeks presenting for right upper quadrant pain. Patient states that earlier today she noticed sharp pain in her right upper quadrant. The sharp pain improved however she had continued cramping along the right side of her abdomen. She had 1 episode of nonbloody nonbilious emesis earlier today. Denies radiation to her back. Described cramping pain. Denies fevers, chills, shortness of breath, chest pain, dysuria, hematuria, urinary frequency, vaginal bleeding or discharge. Prior abdominal surgeries include her prior and cholecystectomy. Patient denies any complications with her thus far. She is continuing to feel movements. Denies constipation or diarrhea. - Related Data Home Medications Medication Instructions Recorded Confirmed DULoxetine HCL [Cymbalta] 60 mg PO HS 07/21/22 07/28/22 lamoTRIgine [LaMICtal] 100 mg PO BID 07/21/22 07/28/22 Previous Rx's Medication Instructions Recorded Famotidine [Pepcid] 20 mg PO DAILY #30 tablet 07/22/22 traMADol HCl [Ultram] 50 mg PO Q6H PRN #6 tab 07/28/22 Allergies Allergy/AdvReac Type Severity Reaction Status Date / Time adhesive Allergy Rash/Hives Verified 06/02/25 23:25 banana Allergy Nausea & Verified 06/02/25 23:25 Vomiting latex Allergy Rash/Hives Verified 06/02/25 23:25 Review of Systems ROS Statement: Those systems with pertinent positive or pertinent negative responses have been documented in the HPI. ROS Other: All systems not noted in ROS Statement are negative. Past Medical History Past Medical History: Asthma, Hypertension Additional Past Medical History / Comment(s): PCOS. GALLBLADDER DISORDER. NO LONGER ON MEDS FOR HTN History of Any Multi-Drug Resistant Organisms: None Reported Past Surgical History: Section, Cholecystectomy Additional Past Surgical History / Comment(s): ERCP-07/22/22 Past Anesthesia/Blood Transfusion Reactions: No Reported Reaction Past Psychological History: Anxiety, Depression Smoking Status: Never smoker Past Alcohol Use History: None Reported Past Drug Use History: None Reported - Past Family History Mother Family Medical History: Hypertension Father Family Medical History: Hypertension Sister(s) Family Medical History: Thyroid Disorder Additional Family Medical History / Comment(s): Hypothyroid General Exam - General Exam Comments Initial Comments: PE: CONSTITUTIONAL: [no apparent distress, well appearing] SKIN: [warm, dry, no jaundice, hives or petechiae] EYES:[ pupils are equally round, extraocular movements intact without nystagmus, clear conjunctiva, non-icteric sclera] HENT: [normocephalic, atraumatic, moist mucus membranes, oropharynx clear without exudates] NECK: , [Full range of motion, normal appearance] PULMONARY: [clear to auscultation without wheezes, rhonchi, or rales, normal excursion, no accessory muscle use and no stridor] CARDIOVASCULAR:[ regular rate, rhythm, normal S1 and S2. No appreciated murmurs, rubs or gallops. Strong radial pulses with intact distal perfusion. No lower extremity edema] GASTROINTESTINAL: [No CVA tenderness, soft, active bowel sounds throughout, mild tenderness palpation along right mid abdomen, right lower quadrant, non- distended, no palpable masses, no rebound or guarding. No hepatosplenomegaly] GENITOURINARY: MUSCULOSKELETAL: [Extremities have no gross deformity, no edema, redness, or swelling. No calf swelling ] NEUROLOGIC: [_a/o x 3, GCS 15, normal mentation and speech. Moves all extremities x 4 without motor or sensory deficit] PSYCHIATRIC:[ _normal mood and affect, thought process is clear and linear] Limitations: no limitations Course Vital Signs 06/02/25 23:26 Temperature 98.4 F Pulse Rate 120 H Respiratory 16 Rate Blood Pressure 117/73 O2 Sat by Pulse 100 Oximetry Medical Decision Making - Medical Decision Making Was pt. sent in by a medical professional or institution (, PA, [employer], urgent care, hospital, or long term...) When possible be specific @ -[No] Did you speak to anyone other than the patient for history (EMS, parent, family, police, friend...)? What history was obtained from this source @ -[No] Did you review nursing and triage notes (agree or disagree)? Why? @ -[I reviewed nursing and triage notes]-agree Were old charts reviewed (outside hosp., previous admission, EMS record, old EKG, old radiological studies, urgent care reports/EKG's, long term records)? Report findings @ -[Medical records reviewed]-Patient echocardiogram from 02/09/2023, showed "well-preserved left ventricular systolic function" Differential Diagnosis (chest pain, altered mental status, abdominal pain women, abdominal pain men, vaginal bleeding, weakness, fever, dyspnea, syncope, headache, dizziness, GI bleed, back pain, seizure, CVA, palpatations, mental health, musculoskeletal)? @ -Differential Abdominal Pain Women: Appendicitis, Cholecystitis, diverticulosis, ischemic bowel, pancreatitis, hepatitis, UTI, gastroenteritis, AAA, incarcerated hernia, bowel obstruction, constipation, inflammatory bowel, peptic ulcer disease, splenic infarction, perforated viscus, kidney stone, ovarian torsion, ectopic , PID, placenta abruption, this is not meant to be an all-inclusive list EKG interpreted by me (3pts min.). @ -[As above] X-rays interpreted by me (1pt min.). @ -[None done] CT interpreted by me (1pt min.). @Personally reviewed CT pelvis I see no evidence of appendicitis obstruction or perforation U/S interpreted by me (1pt. min.). @ -[None done] What testing was considered but not performed or refused? (CT, X-rays, U/S, labs)? Why? @ - What meds were considered but not given or refused? Why? @ -[None] Did you discuss the management of the patient with other professionals (professionals i.e. , PA, [employer], lab, RT, psych nurse, social media coordinator, sprue cutting press operator, teacher, correction officer penitentiary, manager rn case)? Give summary @ -[No] Was smoking cessation discussed for >3mins.? @ -[No] Was critical care preformed (if so, how long)? @ -[No] Were there social determinants of health that impacted care today? How? (Homelessness, low income, unemployed, alcoholism, drug addiction, transportation, low edu. Level, literacy, decrease access to med. care, alf, rehab)? @ -[No] Was there de-escalation of care discussed even if they declined (Discuss DNR or withdrawal of care, Hospice)? @ -[No] What co-morbidities impacted this encounter? (DM, HTN, Smoking, COPD, CAD, Cancer, CVA, ARF, Chemo, Hep., AIDS, mental health diagnosis, sleep apnea, morbid obesity)? @ -[None] Was patient admitted / discharged? Hospital course, mention meds given and route, prescriptions, significant lab abnormalities, going to OR and other pertinent info. @ -[hospital course] this is a pleasant 29-year-old female presenting for once a of right sided abdominal pain. Patient is mildly tachycardic on arrival with heart rate 120, otherwise blood pressure stable, patient is afebrile. On my assessment she is well-appearing, awake alert and pleasant. She does negative Hastings sign negative CVA tenderness, did have some tenderness palpation deep palpation of the right side the abdomen and right lower quadrant. Will obtain labs, ultrasound of the right upper quadrant and attempt to obtain ultrasound of the appendix. Patient will be given all, GI cocktail and IV fluids. Patient had a prolonged wait time due to issues with ultrasound of the appendix being read despite multiple phone calls to stat read. Ultrasonic Welding Machine Operator's opinion was that the appendix was not visualized but there did appear to be an area of hyperemia which was likely a lymph node. Patient does have a mild leukocytosis, on reassessment she has persistent pain and tenderness ovation of the right lower quadrant with positive psoas sign. I discussed with the patient options for discharge with watchful waiting, CT abdomen pelvis and discussed the risks o f radiation exposure to herself and the fetus, versus transfer to facility with sed high school teacher for MRI. After extensive discussion the decision was made to obtain CT abdomen pelvis, to which patient was agreeable. CT abdomen pelvis negative for appendicitis. No acute findings. Updated patient of findings, discussed with her signs symptoms to monitor closely for warranting return to the ER such a failure of pain improvement 48 hours, fevers, vomiting, inability to keep down fluids, vaginal bleeding or just experiences symptoms or any further concerns for her wellbeing return to the ER immediately Undiagnosed new problem with uncertain prognosis? @ -[No] Drug Therapy requiring intensive monitoring for toxicity (Heparin, Nitro, Insulin, Cardizem)? @ -[No] Were any procedures done? @ -[No] Diagnosis/symptom? Right abdominal pain in Acute, or Chronic, or Acute on Chronic? @ -[default] Uncomplicated (without systemic symptoms) or Complicated (systemic symptoms)? @ -[default] Side effects of treatment? @ -[No] Exacerbation, Progression, or Severe Exacerbation? @ -[No] Poses a threat to life or bodily function? How? (Chest pain, [place], [place], pneumonia, PE, COPD, DKA, ARF, appy, cholecystitis, CVA, Diverticulitis, Homicidal, Suicidal, threat to staff... and all critical care pts) @ -[No] - Lab Data Result diagrams: 06/02/25 23:45 06/02/25 23:45 Lab Results 06/02/25 06/02/25 06/02/25 Range/Units 23:45 23:45 23:45 WBC 12.91 H (4.50-10.00) 10*3/uL RBC 4.20 (4.10-5.20) 10*6/uL Hgb 12.5 (12.0-15.0) g/dL Hct 36.2 L (37.2-46.3) % MCV 86.2 (80.0-97.0) fL MCH 29.8 (27.0-32.0) pg MCHC 34.5 (32.0-37.0) g/dL Plt Count 341 (140-440) 10*3/uL MPV 9.3 L (9.5-12.2) fL Immature Gran % (Auto) 0.6 % Neutrophils % 61.5 % Lymphocytes % 30.1 % Monocytes % 6.0 % Eosinophils % 1.6 % Basophils % 0.2 % Immature Gran # 0.08 H (0.00-0.04) 10*3/uL Neutrophils # 7.92 H (1.80-7.70) 10*3/uL Lymphocytes # 3.89 (0.90-5.00) 10*3/uL Monocytes # 0.78 (0.20-1.00) 10*3/uL Eosinophils # 0.21 (0.04-0.35) 10*3/uL Basophils # 0.03 (0.00-0.10) 10*3/uL PT 9.9 L (10.0-12.5) sec INR 0.9 (<1.2) APTT 23.1 (22.0-30.0) sec Sodium (137-145) mmol/L Potassium (3.5-5.1) mmol/L Chloride (98-107) mmol/L Carbon Dioxide (22-30) mmol/L Anion Gap mmol/L BUN (7-17) mg/dL Creatinine (0.52-1.04) mg/dL Est GFR (CKD-EPI)AfAm (>60 ml/min/1.73 sqM) Est GFR (CKD-EPI)NonAf (>60 ml/min/1.73 sqM) Glucose (74-99) mg/dL Calcium (8.4-10.2) mg/dL Total Bilirubin (0.2-1.3) mg/dL AST (14-36) U/L ALT (4-34) U/L Alkaline Phosphatase (38-126) U/L C-Reactive Protein (<1.0) mg/dL Total Protein (6.3-8.2) g/dL Albumin (3.5-5.0) g/dL Amylase (30-110) U/L Lipase (23-300) U/L Urine Color Colorless Urine Appearance Clear (Clear) Urine pH 5.0 (5.0-8.0) Ur Specific [place] 1.007 (1.001-1.035) Urine Protein Negative (Negative) Urine Glucose (UA) Negative (Negative) Urine Ketones Trace H (Negative) Urine Blood Negative (Negative) Urine Nitrite Negative (Negative) Urine Bilirubin Negative (Negative) Urine Urobilinogen <2.0 (<2.0) mg/dL Ur Leukocyte Esterase Negative (Negative) Blood Type Blood Type Recheck Bld Type Recheck Status Antibody Screen Spec Expiration Date 06/02/25 06/02/25 06/03/25 Range/Units 23:45 23:57 00:02 WBC (4.50-10.00) 10*3/uL RBC (4.10-5.20) 10*6/uL Hgb (12.0-15.0) g/dL Hct (37.2-46.3) % MCV (80.0-97.0) fL MCH (27.0-32.0) pg MCHC (32.0-37.0) g/dL Plt Count (140-440) 10*3/uL MPV (9.5-12.2) fL Immature Gran % (Auto) % Neutrophils % % Lymphocytes % % Monocytes % % Eosinophils % % Basophils % % Immature Gran # (0.00-0.04) 10*3/uL Neutrophils # (1.80-7.70) 10*3/uL Lymphocytes # (0.90-5.00) 10*3/uL Monocytes # (0.20-1.00) 10*3/uL Eosinophils # (0.04-0.35) 10*3/uL Basophils # (0.00-0.10) 10*3/uL PT (10.0-12.5) sec INR (<1.2) APTT (22.0-30.0) sec Sodium 133 L (137-145) mmol/L Potassium 4.0 (3.5-5.1) mmol/L Chloride 101 (98-107) mmol/L Carbon Dioxide 21 L (22-30) mmol/L Anion Gap 11 mmol/L BUN 11 (7-17) mg/dL Creatinine 0.55 (0.52-1.04) mg/dL Est GFR (CKD-EPI)AfAm >90 (>60 ml/min/1.73 sqM) Est GFR (CKD-EPI)NonAf >90 (>60 ml/min/1.73 sqM) Glucose 103 H (74-99) mg/dL Calcium 9.5 (8.4-10.2) mg/dL Total Bilirubin 0.5 (0.2-1.3) mg/dL AST 19 (14-36) U/L ALT 19 (4-34) U/L Alkaline Phosphatase 70 (38-126) U/L C-Reactive Protein 1.8 H (<1.0) mg/dL Total Protein 6.8 (6.3-8.2) g/dL Albumin 3.9 (3.5-5.0) g/dL Amylase 38 (30-110) U/L Lipase 97 (23-300) U/L Urine Color Urine Appearance (Clear) Urine pH (5.0-8.0) Ur Specific [place] (1.001-1.035) Urine Protein (Negative) Urine Glucose (UA) (Negative) Urine Ketones (Negative) Urine Blood (Negative) Urine Nitrite (Negative) Urine Bilirubin (Negative) Urine Urobilinogen (<2.0) mg/dL Ur Leukocyte Esterase (Negative) Blood Type O Positive Blood Type Recheck O Pos Bld Type Recheck Status No Antibody Screen NEGATIVE Spec Expiration Date 06/06/20252301 Disposition Clinical Impression: Abdominal pain during Disposition: HOME SELF-CARE Condition: Good Instructions (If sedation given, give patient instructions): Abdominal Pain in (ED) Additional Instructions: Every disease is a spectrum and a small chance still exists that a serious con dition could develop, for this reason, please monitor yourself closely for new, changing or worsening symptoms, symptoms that persist beyond 48 hours, sudden worsening of pain, uncontrolled pain, vomiting, vaginal bleeding fever, inability to tolerate/keep down fluids or your medications, inability to follow up with outpatient providers as instructed and should you experience these symptoms or should you have any further concerns for your wellbeing please return to the ED or call 911 immediately. You may use warm compresses for your pain, additionally you may take up to 1000 mg of Tylenol every 6 hours please do not exceed 4 doses or 4000 mg in 24 hours. Please follow-up with your band presser within 2 to 3 days regarding today's visit. PLEASE call your primary care physician as soon as possible to arrange / discuss plan for followup appointment. Appointment in the next 1-3 days is strongly encouraged if possible. PLEASE let us know here before you leave if there is anything further we can do to be of any assistance. Take care and feel Better! Is patient prescribed a controlled substance at d/c from ED?: No Referrals: Quan Saini DO [Primary Care Provider] - 1-2 days
[2025-06-03 00:29] LABS: Basophils # (A) 0.03 10*3/uL (0.00-0.10); Basophils % (A) 0.2 %; Eosinophils # (A) 0.21 10*3/uL (0.04-0.35); Eosinophils % (A) 1.6 %; HCT 36.2 % (37.2-46.3); HGB 12.5 g/dL (12.0-15.0); Lymphocytes # (A) 3.89 10*3/uL (0.90-5.00); Lymphocytes % (A) 30.1 %; MCH 29.8 pg (27.0-32.0); MCHC 34.5 g/dL (32.0-37.0); MCV 86.2 fL (80.0-97.0); Monocytes # (A) 0.78 10*3/uL (0.20-1.00); Monocytes % (A) 6.0 %; Neutrophils # (A) 7.92 10*3/uL (1.80-7.70); Neutrophils % (A) 61.5 %; Platelet Count 341 10*3/uL (140-440); RBC 4.20 10*6/uL (4.10-5.20); RDW 12.6 % (11.5-14.5); WBC 12.91 10*3/uL (4.50-10.00)
[2025-06-03 00:49] LABS: Bilirubin,Urine Negative (Negative); Blood,Urine Negative (Negative); Color,Urine Colorless; Glucose,Urine (UA) Negative (Negative); Ketones,Urine Trace (Negative); Leukocyte Esterase,Urine Negative (Negative); Nitrite,Urine Negative (Negative); PH, Urine 5.0 (5.0-8.0); Protein,Urine Negative (Negative); Specific Gravity,Urine 1.007 (1.001-1.035); Urobilinogen,Urine <2.0 mg/dL (<2.0)
[2025-06-03 01:08] LABS: ALT 19 U/L (4-34); AST 19 U/L (14-36); African American GFR (CKD) >90 (>60 ml/min/1.73 sqM); Albumin 3.9 g/dL (3.5-5.0); Alkaline Phosphatase 70 U/L (38-126); Amylase 38 U/L (30-110); Anion Gap 11 mmol/L; Blood Urea Nitrogen 11 mg/dL (7-17); Calcium 9.5 mg/dL (8.4-10.2); Carbon Dioxide 21 mmol/L (22-30); Chloride 101 mmol/L (98-107); Glucose 103 mg/dL (74-99); Lipase 97 U/L (23-300); Non-African American GFR(CKD) >90 (>60 ml/min/1.73 sqM); Potassium 4.0 mmol/L (3.5-5.1); Sodium 133 mmol/L (137-145); Total Protein 6.8 g/dL (6.3-8.2)
[2025-06-03 01:58] LABS: INR 0.9 (<1.2); Partial Thromboplastin Time 23.1 sec (22.0-30.0); Prothrombin Time 9.9 sec (10.0-12.5)
--- NOTE | 2025-06-03 02:06 | US ---
EXAM: US Abdomen Limited, Right Upper Quadrant CLINICAL HISTORY: ITS.REASON US Reason: R. side abd pain, prior cholecystectomy TECHNIQUE: Real-time ultrasound of the right upper quadrant with image documentation. COMPARISON: No relevant prior studies available. FINDINGS: Liver: Increased echogenicity. No mass. No intrahepatic bile duct dilation. Gallbladder: Removed. Negative Hastings's sign. Common bile duct: No stones. No dilation. Pancreas: Obscured. Right kidney: No stones. No solid mass. No hydronephrosis. IMPRESSION: Fatty liver
--- NOTE | 2025-06-03 02:18 | US ---
ADDENDUM - Added by Sandra Malone MD on 06/03/2025 4:32 AM (-04:00) Please note the appendix is nonvisualized. No acute finding. EXAM: US Abdomen Limited, Right Upper Quadrant CLINICAL HISTORY: Right Abdominal Pain TECHNIQUE: Real-time ultrasound of the right upper quadrant with image documentation. COMPARISON: No relevant prior studies available. FINDINGS: Liver: The liver measures 17.5 cm. There is increased echogenicity of the liver. No mass. No intrahepatic bile duct dilation. Gallbladder: Cholecystectomy. Common bile duct: The common bile duct is normal measuring 0.3 cm. No stones. No dilation. Pancreas: The pancreatic head and body are within normal limits. The tail is not visualized due to overlying bowel gas. Right kidney: The right kidney is unremarkable measuring 9.0 cm. No stones. No hydronephrosis. IMPRESSION: Hepatomegaly with fatty infiltration of the liver.
--- NOTE | 2025-06-03 05:26 | CT ---
EXAM: CT Abdomen and Pelvis With Intravenous Contrast CLINICAL HISTORY: Right lower quadrant Pain TECHNIQUE: Axial computed tomography images of the abdomen and pelvis with intravenous contrast. CTDI is 26.2 mGy and DLP is 1649.4 mGy-cm. This CT exam was performed using one or more of the following dose reduction techniques: automated exposure control, adjustment of the mA and/or kV according to patient size, and/or use of iterative reconstruction technique. COMPARISON: No relevant prior studies available. FINDINGS: Lung bases: Unremarkable. No mass. No consolidation. ABDOMEN: Liver: The spleen measures 16.4 cm. No mass. Gallbladder and bile ducts: Cholecystectomy. No ductal dilation. Pancreas: Unremarkable. No mass. No ductal dilation. Spleen: The spleen is unremarkable. No mass. Adrenals: Unremarkable. No mass. Kidneys and ureters: Unremarkable. No solid mass. No hydronephrosis. Stomach and bowel: Constipation. No obstruction. No mucosal thickening. PELVIS: Appendix: Normal appendix. Bladder: Unremarkable. No mass. Reproductive: Single intrauterine gestation. ABDOMEN and PELVIS: Intraperitoneal space: Unremarkable. No free air. No significant fluid collection. Bones/joints: No acute fracture. No dislocation. Soft tissues: Unremarkable. Vasculature: Unremarkable. No abdominal aortic aneurysm. Lymph nodes: Unremarkable. No enlarged lymph nodes. IMPRESSION: 1. Single intrauterine gestation. 2. Normal appendix.
[2025-06-03 05:43] VITALS: BP 118/73; PULSE 109; RESP 17; TEMP 97.7
== END 2025-06-03 05:46 | disposition home or self-care (01) ==
LOC: EC 23:21
DX: O26.892 Other specified pregnancy related conditions, second trimester (principal); Z91.09 Other allergy status, other than to drugs and biological substances; Z91.040 Latex allergy status; Z91.018 Allergy to other foods; Z3A.18 18 weeks gestation of pregnancy
CPT/HCPCS: 36415; 86900; 86901; 80053; 82150; 83690; 85025; 85610; 85730; 86850; 86140; 81003; 76705; 74177; 99285; 96374; 96361; Q9967; J1308